=== PATIENT | female | born 1940 | race Caucasian/White ===

== ENCOUNTER 2017-08-08 10:11 | Inpatient (IN) | payer MEDICARE, SELFPAY ==
[~2017-08-08] VITALS: Ht 170.2 cm; Wt 99.8 kg
[~2017-08-08 10:11] MED LIST: ACET325 PO; ALBU8HFA2 INH; ALBU90OI INH; ALBU90OI61 INH; ALEN70 PO; ASACOL HD800 MG PO; AZACOL PO; Advair Hfa 230-12 GM INH; Antivert25 MG PO; BUDE6HFA INH; Bactrim Ds Tab1 EACH PO; CITA20 PO; D-MANNOSE PO; DICL25ER PO; DICL75ER PO; FLUSAL2505 IH; FURO20 PO; Flagyl500 MG PO; GUAI600ER PO; HYDACE5 PO; HYDMOR2 PO; HYOSYNE PO; LEVFLO250 PO; LORA1 PO; LORA10ER PO; METO50 PO; NYST100SU MT; OMEP20ER PO; PANT40 PO; POTCHL10ER PO; PROC5 PO; PROM25 PO; Percocet 5-3251 EACH PO; Protonix40 MG PO; SULTRIDS PO; TRAM50 PO; VICODIN 5-3001 EACH PO; Zofran Odt4 MG SL
[2017-08-08 11:49] LABS: BASOPHILS ABSOLUTE AUTO 0.01 K/mm3 (0.00-0.23); BASOPHILS PERCENT AUTO 0 % (0-2); EOSINOPHILS PERCENT AUTO 0 % (0-6); Hematocrit 39.8 % (33.0-51.0); Hemoglobin 13.4 g/dL (11.5-16.0); IMMATURE GRAN ABSOLUTE AUTO 0.05 K/mm3 (0.00-0.10); IMMATURE GRAN PERCENT AUTO 1 % (0-1); LYMPHOCYTES ABSOLUTE AUTO 0.85 K/mm3 (0.84-5.20); LYMPHOCYTES PERCENT AUTO 8 % (21-46); MONOCYTES PERCENT AUTO 10 % (4-13); Mean Corpuscular HGB 29.5 pg (26.0-34.0); Mean Corpuscular HGB Conc 33.7 g/dL (31.5-36.5); Mean Corpuscular Volume 88 fL (80-100); Mean Platelet Volume 9.5 fL (9.1-12.4); NEUTROPHILS ABSOLUTE AUTO 8.52 K/mm3 (1.96-9.15); NEUTROPHILS PERCENT AUTO 81 % (41-73); Platelet Count 193 K/mm3 (150-400); RDW Coefficient Variation 13.7 % (11.7-14.2); RDW Standard Deviation 44.4 fL (35.1-46.3); Red Blood Cell Count 4.54 M/mm3 (3.80-5.20); White Blood Cell Count 10.53 K/mm3 (4.00-11.30)
[2017-08-08 12:16] LABS: Alanine Aminotransfer (ALT/SGP 34 U/L (12-78); Albumin, Blood 2.8 g/dL (3.4-5.0); Albumin/Globulin Ratio 0.6 (0.8-1.8); Alk Phos 102 U/L (50-136); Anion Gap 11 mmol/L (6-16); Aspartate Aminotrans (AST/SGOT 41 U/L (12-37); Bilirubin, Total 0.6 mg/dL (0.1-1.0); Blood Urea Nitrogen 13 mg/dL (8-24); Bun/Creatinine Ratio 24.3 (12.0-20.0); CO2, Blood 26 mmol/L (21-32); Calcium, Blood 8.3 mg/dL (8.5-10.1); Chloride, Blood 87 mmol/L (98-108); Creatinine, Blood 0.54 mg/dL (0.40-1.00); Globulin, Blood 4.4 g/dL (2.2-4.0); Glomerular Filtration Rate >60 (60-); Glucose, Blood 195 mg/dL (70-99); Potassium, Blood 3.3 mmol/L (3.5-5.5); Sodium, Blood 124 mmol/L (136-145); Total Protein, Blood 7.2 g/dL (6.4-8.2)
[2017-08-08] MEDS ORDERED: Omeprazole20 M1 PO (13:12)
[2017-08-08] MEDS ORDERED: DONE10 PO (13:12)
[2017-08-08 14:04] LABS: Magnesium, Blood 1.9 mg/dL (1.6-2.4); Troponin I <0.015 ng/mL (0.000-0.040)
[2017-08-09 05:12] LABS: BASOPHILS PERCENT AUTO 0 % (0-2); EOSINOPHILS PERCENT AUTO 0 % (0-6); Hematocrit 34.3 % (33.0-51.0); Hemoglobin 11.5 g/dL (11.5-16.0); IMMATURE GRAN ABSOLUTE AUTO 0.04 K/mm3 (0.00-0.10); IMMATURE GRAN PERCENT AUTO 1 % (0-1); LYMPHOCYTES ABSOLUTE AUTO 0.52 K/mm3 (0.84-5.20); LYMPHOCYTES PERCENT AUTO 7 % (21-46); MONOCYTES ABSOLUTE AUTO 0.41 K/mm3 (0.16-1.47); MONOCYTES PERCENT AUTO 5 % (4-13); Mean Corpuscular HGB Conc 33.5 g/dL (31.5-36.5); Mean Corpuscular Volume 87 fL (80-100); Mean Platelet Volume 9.7 fL (9.1-12.4); NEUTROPHILS ABSOLUTE AUTO 6.91 K/mm3 (1.96-9.15); NEUTROPHILS PERCENT AUTO 88 % (41-73); Platelet Count 169 K/mm3 (150-400); RDW Coefficient Variation 13.7 % (11.7-14.2); RDW Standard Deviation 43.6 fL (35.1-46.3); Red Blood Cell Count 3.96 M/mm3 (3.80-5.20); White Blood Cell Count 7.88 K/mm3 (4.00-11.30)
[2017-08-09 05:44] LABS: Anion Gap 10 mmol/L (6-16); Blood Urea Nitrogen 14 mg/dL (8-24); Bun/Creatinine Ratio 26.7 (12.0-20.0); CO2, Blood 25 mmol/L (21-32); Chloride, Blood 92 mmol/L (98-108); Creatinine, Blood 0.52 mg/dL (0.40-1.00); Glomerular Filtration Rate >60 (60-); Glucose, Blood 209 mg/dL (70-99); Potassium, Blood 3.6 mmol/L (3.5-5.5); Sodium, Blood 127 mmol/L (136-145)
[2017-08-09 05:48] LABS: Troponin I <0.015 ng/mL (0.000-0.040)
[2017-08-09 05:49] LABS: Source, Urine Clean Catch
[2017-08-09 05:56] LABS: Bilirubin, Urine Neg (Neg); Blood, Urine 1+ (Neg); Glucose Qualitative, Urine 4+ (Neg); Ketones, Urine Neg (Neg); Leukocyte Esterase, Urine Neg (Neg); Nitrite, Urine Pos (Neg); Protein, Urine 1+ (Neg); Specific Gravity, Urine 1.015 (1.003-1.022); Urobilinogen, Urine NORM (Normal)
[2017-08-09 06:01] LABS: Appearance, Urine Hazy (Clear); Color, Urine Yellow (P-Yellow)
[2017-08-09 06:02] LABS: Bacteria Many /hpf; Red Blood Cells, Urine 0-2 /hpf (0-2); Squamous Epithelial Cells Few /hpf (Few)
[2017-08-09 10:49] LABS: Adenovirus Not Detected (NOT DETECT); Bordetella pertussis Not Detected (NOT DETECT); Chlamydophila pneumoniae Not Detected (NOT DETECT); Coronavirus 229E Not Detected (NOT DETECT); Coronavirus HKU1 Not Detected (NOT DETECT); Coronavirus NL63 Not Detected (NOT DETECT); Coronavirus OC43 Not Detected (NOT DETECT); Human Metapneumovirus Not Detected (NOT DETECT); Human Rhinovirus/Enterovirus Not Detected (NOT DETECT); Influenza A/2009-H1 Not Detected (NOT DETECT); Influenza A/H1 Not Detected (NOT DETECT); Influenza B Not Detected (NOT DETECT); Mycoplasma pneumoniae Not Detected (NOT DETECT); Parainfluenza Virus 1 Not Detected (NOT DETECT); Parainfluenza Virus 2 Not Detected (NOT DETECT); Parainfluenza Virus 3 Not Detected (NOT DETECT); Parainfluenza Virus 4 Not Detected (NOT DETECT); Respiratory Syncytial Virus Not Detected (NOT DETECT)
[2017-08-09 12:12] LABS: Influenza A/H3 Detected (NOT DETECT)
[2017-08-09 12:13] LABS: Influenza A Detected (NOT DETECT)
[2017-08-11 05:55] LABS: Anion Gap 9 mmol/L (6-16); Blood Urea Nitrogen 13 mg/dL (8-24); Bun/Creatinine Ratio 24.7 (12.0-20.0); CO2, Blood 28 mmol/L (21-32); Calcium, Blood 8.2 mg/dL (8.5-10.1); Chloride, Blood 98 mmol/L (98-108); Creatinine, Blood 0.53 mg/dL (0.40-1.00); Glomerular Filtration Rate >60 (60-); Glucose, Blood 116 mg/dL (70-99); Sodium, Blood 135 mmol/L (136-145)
[2017-08-11] MEDS ORDERED: Tylenol325 MG PO (10:45)
[2017-08-11] MEDS ORDERED: BUDE.25 NEB (10:46)
[2017-08-11] MEDS ORDERED: BENZ100A PO (10:46)
[2017-08-11] MEDS ORDERED: LEVO750 PO (10:47)
== END 2017-08-11 11:52 | disposition home or self-care (01) | DRG 193 ==
LOC: ER 10:11 → MEDS 15:15 → ENPENDDIS 08-11 10:04 → MEDS 08-11 11:52
PROVIDERS: Internal Medicine; Physician Assistant; Psychiatry & Neurology Psychiatry
DX: J11.08 Influenza due to unidentified influenza virus with specified pneumonia (principal); J96.01 Acute respiratory failure with hypoxia; J45.901 Unspecified asthma with (acute) exacerbation; E87.1 Hypo-osmolality and hyponatremia; E86.0 Dehydration; K21.9 Gastro-esophageal reflux disease without esophagitis; K27.9 Peptic ulcer, site unspecified, unspecified as acute or chronic, without hemorrhage or perforation; E87.6 Hypokalemia; R73.9 Hyperglycemia, unspecified; R73.03 Prediabetes; J14 Pneumonia due to Hemophilus influenzae; Z87.891 Personal history of nicotine dependence; Z79.899 Other long term (current) drug therapy; Z88.1 Allergy status to other antibiotic agents; Z88.5 Allergy status to narcotic agent; Z88.2 Allergy status to sulfonamides; Z88.8 Allergy status to other drugs, medicaments and biological substances; Z91.048 Other nonmedicinal substance allergy status
CPT/HCPCS: 36415; 71046; 80048; 80053; 81001; 82947; 83036; 83735; 83880; 84484; 85025; 87070; 87081; 87086; 87205; 87252; 87254; 87449; 87486; 87581; 87633; 87798; 93005; 93010; 94640; 94667; 94760; 96361; 96374; 96375; 97162; 97530; 99285; C9113; G8978; G8979; J0360; J0456; J0696; J1650; J2405; J2920; J3480; J7030; J7050; J7060; Q2038

== ENCOUNTER → 2018-08-29 | Outpatient (CLI) | payer MEDICARE ==
[~2018-08-29] MED LIST changes: +BENZ100A PO; +BUDE.25 NEB; +DONE10 PO; +LEVO750 PO; +Omeprazole20 M1 PO; +Tylenol325 MG PO
== END | disposition home or self-care (01) ==
LOC: LAB 13:55 → LAB SHORT 13:55
DX: N39.0 Urinary tract infection, site not specified (principal)
CPT/HCPCS: 87077; 87086; 87186

== ENCOUNTER → 2018-11-15 | Outpatient (CLI) | payer MEDICARE ==
[2018-11-15 16:17] LABS: BASOPHILS PERCENT AUTO 1 % (0-2); EOSINOPHILS ABSOLUTE AUTO 0.08 K/mm3 (0.00-0.68); EOSINOPHILS PERCENT AUTO 1 % (0-6); Hematocrit 36.4 % (33.0-51.0); IMMATURE GRAN ABSOLUTE AUTO 0.05 K/mm3 (0.00-0.10); IMMATURE GRAN PERCENT AUTO 1 % (0-1); LYMPHOCYTES ABSOLUTE AUTO 3.65 K/mm3 (0.84-5.20); LYMPHOCYTES PERCENT AUTO 35 % (21-46); MONOCYTES PERCENT AUTO 9 % (4-13); Mean Corpuscular HGB 28.6 pg (26.0-34.0); Mean Corpuscular Volume 87 fL (80-100); Mean Platelet Volume 10.1 fL (9.1-12.4); NEUTROPHILS ABSOLUTE AUTO 5.54 K/mm3 (1.96-9.15); NEUTROPHILS PERCENT AUTO 54 % (41-73); Platelet Count 176 K/mm3 (150-400); RDW Coefficient Variation 14.1 % (11.7-14.2); RDW Standard Deviation 45.1 fL (35.1-46.3); Red Blood Cell Count 4.19 M/mm3 (3.80-5.20); White Blood Cell Count 10.32 K/mm3 (4.00-11.30)
[2018-11-15 16:27] LABS: Albumin, Blood 3.4 g/dL (3.4-5.0); Albumin/Globulin Ratio 0.9 (0.8-1.8); Bilirubin, Total 0.4 mg/dL (0.1-1.0); Bun/Creatinine Ratio 17.8 (12.0-20.0); Calcium, Blood 8.4 mg/dL (8.5-10.1); Creatinine, Blood 1.18 mg/dL (0.40-1.00); Globulin, Blood 3.8 g/dL (2.2-4.0); Potassium, Blood 4.1 mmol/L (3.5-5.5); Total Protein, Blood 7.2 g/dL (6.4-8.2)
== END ==
LOC: LAB SHORT 16:12 → LAB EV 16:12
PROVIDERS: Emergency Medicine
DX: N39.0 Urinary tract infection, site not specified (principal)
CPT/HCPCS: 80053; 85025; 87086

== ENCOUNTER 2019-01-08 17:46 | Emergency (ER) | payer MEDICARE ==
[~2019-01-08] VITALS: Ht 170.2 cm; Wt 99.8 kg
[2019-01-08] MEDS ORDERED: CYCL10 PO (21:06)
[2019-01-08] MEDS ORDERED: Roxicodone5 MG PO (21:06)
== END 2019-01-08 22:13 | disposition home or self-care (01) ==
LOC: ER 17:46
DX: M54.5 Low back pain (principal); G89.29 Other chronic pain; M25.552 Pain in left hip; Z88.2 Allergy status to sulfonamides; Z88.8 Allergy status to other drugs, medicaments and biological substances; Z88.1 Allergy status to other antibiotic agents; Z88.0 Allergy status to penicillin; Z79.899 Other long term (current) drug therapy; J45.909 Unspecified asthma, uncomplicated; Z87.891 Personal history of nicotine dependence
CPT/HCPCS: 96372; 99283-25; A9270; A9270-GY; J1170

== ENCOUNTER → 2019-02-03 | Outpatient (CLI) | payer MEDICARE ==
[~2019-02-03] MED LIST changes: +ASCO500 PO; +AZIT250 PO; +AZO CRANBERRY1 EAC1 PO; +CEFP200 PO; +CYCL10 PO; +FERSU300 PO; +GUAI600T33 PO; +PRED20 PO; +Pulmicort1 MG/2 ML INH; +Roxicodone5 MG PO; +SENN187 PO
== END ==
LOC: LAB SHORT 16:12 → LAB EV 16:12
DX: R30.0 Dysuria (principal)
CPT/HCPCS: 87077; 87086; 87186

== ENCOUNTER → 2019-02-27 | Outpatient (CLI) | payer MEDICARE | END | disposition home or self-care (01) | LOC: LAB 15:00 → LAB SHORT 15:00 | DX: N39.0 Urinary tract infection, site not specified (principal) | CPT/HCPCS: 87077; 87086; 87186 ==

== ENCOUNTER → 2019-03-29 | Outpatient (CLI) | payer MEDICARE | LOC: LAB SHORT 13:39 → LAB 13:39 | DX: N39.0 Urinary tract infection, site not specified (principal) | CPT/HCPCS: 87077; 87086; 87186 ==

== ENCOUNTER → 2019-05-16 | Outpatient (CLI) | payer MEDICARE | END | disposition home or self-care (01) | LOC: LAB SHORT 14:12 → LAB 14:12 | DX: N39.0 Urinary tract infection, site not specified (principal) | CPT/HCPCS: 87077; 87086; 87186 ==

== ENCOUNTER → 2019-05-19 | Outpatient (CLI) | payer MEDICARE ==
[2019-05-19 16:44] LABS: BASOPHILS ABSOLUTE AUTO 0.11 K/mm3 (0.00-0.23); BASOPHILS PERCENT AUTO 1 % (0-2); EOSINOPHILS ABSOLUTE AUTO 0.13 K/mm3 (0.00-0.68); EOSINOPHILS PERCENT AUTO 1 % (0-6); Hematocrit 38.2 % (33.0-51.0); Hemoglobin 12.8 g/dL (11.5-16.0); IMMATURE GRAN ABSOLUTE AUTO 0.11 K/mm3 (0.00-0.10); IMMATURE GRAN PERCENT AUTO 1 % (0-1); LYMPHOCYTES ABSOLUTE AUTO 2.26 K/mm3 (0.84-5.20); LYMPHOCYTES PERCENT AUTO 19 % (21-46); MONOCYTES ABSOLUTE AUTO 1.16 K/mm3 (0.16-1.47); MONOCYTES PERCENT AUTO 10 % (4-13); Mean Corpuscular HGB Conc 33.5 g/dL (31.5-36.5); Mean Corpuscular Volume 87 fL (80-100); Mean Platelet Volume 9.6 fL (9.1-12.4); NEUTROPHILS ABSOLUTE AUTO 8.42 K/mm3 (1.96-9.15); NEUTROPHILS PERCENT AUTO 69 % (41-73); Platelet Count 232 K/mm3 (150-400); RDW Coefficient Variation 13.3 % (11.7-14.2); RDW Standard Deviation 42.2 fL (35.1-46.3); Red Blood Cell Count 4.41 M/mm3 (3.80-5.20); White Blood Cell Count 12.19 K/mm3 (4.00-11.30)
[2019-05-19 16:52] LABS: Albumin, Blood 2.8 g/dL (3.4-5.0); Albumin/Globulin Ratio 0.6 (0.8-1.8); Bilirubin, Total 0.6 mg/dL (0.1-1.0); Bun/Creatinine Ratio 8.9 (12.0-20.0); Calcium, Blood 8.9 mg/dL (8.5-10.1); Creatinine, Blood 1.12 mg/dL (0.40-1.00); Total Protein, Blood 7.8 g/dL (6.4-8.2)
== END | disposition home or self-care (01) ==
LOC: LAB EV 16:38 → LAB SHORT 16:38
PROVIDERS: Physician Assistant
DX: N39.0 Urinary tract infection, site not specified (principal); R11.2 Nausea with vomiting, unspecified
CPT/HCPCS: 80053; 85025; 87077; 87086; 87186

== ENCOUNTER 2019-05-20 16:31 | Inpatient (IN) | payer MEDICARE ==
[~2019-05-20] VITALS: Ht 170.2 cm; Wt 95.2 kg
[~2019-05-20 16:31] MED LIST changes: -ASCO500 PO; -AZIT250 PO; -AZO CRANBERRY1 EAC1 PO; -CEFP200 PO; -FERSU300 PO; -GUAI600T33 PO; -PRED20 PO; -Pulmicort1 MG/2 ML INH; -SENN187 PO
--- NOTE | 2019-05-20 19:01 | NUR ---
PT TRANSFERRED FROM ER. SETTLED TO BED. HUSB GOING TO GET SOME DINNER. STATES HE BETTER HISTORIAN. PASSING TO [facility]. BED IN LOW POSITION,C ALL LITE IN REACH. CALLS APPROP
[2019-05-21 04:39] LABS: BASOPHILS ABSOLUTE AUTO 0.02 K/mm3 (0.00-0.23); BASOPHILS PERCENT AUTO 0 % (0-2); EOSINOPHILS ABSOLUTE AUTO 0.01 K/mm3 (0.00-0.68); EOSINOPHILS PERCENT AUTO 0 % (0-6); Hematocrit 31.8 % (33.0-51.0); Hemoglobin 10.3 g/dL (11.5-16.0); IMMATURE GRAN ABSOLUTE AUTO 0.08 K/mm3 (0.00-0.10); IMMATURE GRAN PERCENT AUTO 1 % (0-1); LYMPHOCYTES ABSOLUTE AUTO 0.78 K/mm3 (0.84-5.20); LYMPHOCYTES PERCENT AUTO 13 % (21-46); MONOCYTES ABSOLUTE AUTO 0.14 K/mm3 (0.16-1.47); MONOCYTES PERCENT AUTO 2 % (4-13); Mean Corpuscular HGB 29.2 pg (26.0-34.0); Mean Corpuscular HGB Conc 32.4 g/dL (31.5-36.5); Mean Platelet Volume 9.5 fL (9.1-12.4); NEUTROPHILS ABSOLUTE AUTO 5.02 K/mm3 (1.96-9.15); NEUTROPHILS PERCENT AUTO 83 % (41-73); Platelet Count 168 K/mm3 (150-400); RDW Coefficient Variation 13.5 % (11.7-14.2); Red Blood Cell Count 3.53 M/mm3 (3.80-5.20); White Blood Cell Count 6.05 K/mm3 (4.00-11.30)
[2019-05-21 04:40] LABS: Mean Corpuscular Volume 90 fL (80-100)
[2019-05-21 04:54] LABS: Anion Gap 6 mmol/L (6-16); Blood Urea Nitrogen 7 mg/dL (8-24); Bun/Creatinine Ratio 11.6 (12.0-20.0); CO2, Blood 26 mmol/L (21-32); Calcium, Blood 7.7 mg/dL (8.5-10.1); Chloride, Blood 104 mmol/L (98-108); Creatinine, Blood 0.61 mg/dL (0.40-1.00); Glomerular Filtration Rate >60 (60-); Glucose, Blood 220 mg/dL (70-99); Sodium, Blood 136 mmol/L (136-145)
--- NOTE | 2019-05-21 05:26 | NUR ---
PATIENT RESTED WELL AND RECEIVED 3L OF IVF THIS NOC SHIFT. SHE TOLERATED THIS WELL AND SAYS SHE IS FEELING MUCH BETTER THIS MORNING. NO ACUTE CHANGES TO REPORT. BED LOW AND LOCKED AND ALARMED FOR SAFETY. CALL VANESSA WITHIN REACH.
--- NOTE | 2019-05-21 16:48 | NUR ---
PT IS SAYING THAT SHE IS FEELING BETTER THAN SHE HAS IN WEEKS, SHE IS STEADY ON HER FEET, SOB HAS SUBSIDED. IV ZITHROMAX CHANGED TO PO. PT IS HOPING TO BE ABLE TO GO HOME TOMORROW. NO ACUTE CHANGES NOTED THIS SHIFT, WILL CONTINUE TO MONITOR AND REPORT TO ONCOMING RN
[2019-05-22 05:10] LABS: BASOPHILS ABSOLUTE AUTO 0.03 K/mm3 (0.00-0.23); BASOPHILS PERCENT AUTO 0 % (0-2); EOSINOPHILS ABSOLUTE AUTO 0.01 K/mm3 (0.00-0.68); EOSINOPHILS PERCENT AUTO 0 % (0-6); Hematocrit 31.1 % (33.0-51.0); IMMATURE GRAN ABSOLUTE AUTO 0.17 K/mm3 (0.00-0.10); IMMATURE GRAN PERCENT AUTO 2 % (0-1); LYMPHOCYTES ABSOLUTE AUTO 2.02 K/mm3 (0.84-5.20); LYMPHOCYTES PERCENT AUTO 21 % (21-46); MONOCYTES ABSOLUTE AUTO 0.78 K/mm3 (0.16-1.47); MONOCYTES PERCENT AUTO 8 % (4-13); Mean Corpuscular HGB 28.3 pg (26.0-34.0); Mean Corpuscular HGB Conc 32.2 g/dL (31.5-36.5); Mean Corpuscular Volume 88 fL (80-100); Mean Platelet Volume 9.2 fL (9.1-12.4); NEUTROPHILS ABSOLUTE AUTO 6.41 K/mm3 (1.96-9.15); NEUTROPHILS PERCENT AUTO 68 % (41-73); Platelet Count 192 K/mm3 (150-400); RDW Coefficient Variation 13.3 % (11.7-14.2); RDW Standard Deviation 43.1 fL (35.1-46.3); Red Blood Cell Count 3.53 M/mm3 (3.80-5.20); White Blood Cell Count 9.42 K/mm3 (4.00-11.30)
[2019-05-22 05:32] LABS: Anion Gap 8 mmol/L (6-16); Blood Urea Nitrogen 9 mg/dL (8-24); Bun/Creatinine Ratio 15.8 (12.0-20.0); CO2, Blood 27 mmol/L (21-32); Calcium, Blood 8.7 mg/dL (8.5-10.1); Chloride, Blood 102 mmol/L (98-108); Creatinine, Blood 0.57 mg/dL (0.40-1.00); Glomerular Filtration Rate >60 (60-); Glucose, Blood 157 mg/dL (70-99); Potassium, Blood 3.7 mmol/L (3.5-5.5); Sodium, Blood 137 mmol/L (136-145)
--- NOTE | 2019-05-22 07:41 | NUR ---
patient had a headache and had troudble sleeping this shift. she received tylenol and chammomile tea an a warm compress which improved her level of pain.
[2019-05-22] MEDS ORDERED: AZIT250 PO (10:22)
[2019-05-22] MEDS ORDERED: Pulmicort1 MG/2 ML INH (10:22)
[2019-05-22] MEDS ORDERED: CEFP200 PO (10:23)
[2019-05-22] MEDS ORDERED: AZO CRANBERRY1 EAC1 PO (10:24)
[2019-05-22] MEDS ORDERED: PRED20 PO (10:25)
[2019-05-22] MEDS ORDERED: SENN187 PO (10:25)
[2019-05-22] MEDS ORDERED: GUAI600T33 PO (10:25)
[2019-05-22] MEDS ORDERED: ASCO500 PO (10:26)
[2019-05-22] MEDS ORDERED: FERSU300 PO (10:26)
--- NOTE | 2019-05-22 11:32 | NUR ---
PERMISSION FOR CARE PATIENT GAVE STUDENT PERMISSION TO PROVIDE CARE ON 05/22/19.
--- NOTE | 2019-05-22 14:37 | NUR ---
SHIFT SUMMARY. 1308 PT DISCHARGED HOME VIA PERSONAL VEHICLE ACCOMPANIED AND DRIVEN BY . PT ESCORTED TO ENTRANCE VIA W/C BY AVIONICS TEST TECHNICIAN. IV REMOVED BY SN. D/C INSTRUCTIONS REVIEWED WITH PT AND COPY PROVIDED. NEW RX SENT TO [facility] PER PT REQUEST. NO NEW CHANGES OR CONCERNS.
== END 2019-05-22 13:08 | disposition home or self-care (01) | DRG 193 ==
LOC: ER 16:31 → MEDS 17:17 → ENPENDDIS 05-22 10:37 → MEDS 05-22 13:08
PROVIDERS: Family Medicine; ADMIT Hospitalist
DX: J18.1 Lobar pneumonia, unspecified organism (principal); J96.21 Acute and chronic respiratory failure with hypoxia; E87.1 Hypo-osmolality and hyponatremia; N39.0 Urinary tract infection, site not specified; J44.0 Chronic obstructive pulmonary disease with (acute) lower respiratory infection; J44.1 Chronic obstructive pulmonary disease with (acute) exacerbation; J45.901 Unspecified asthma with (acute) exacerbation; Z66 Do not resuscitate; K21.9 Gastro-esophageal reflux disease without esophagitis; B96.20 Unspecified Escherichia coli [E. coli] as the cause of diseases classified elsewhere; Z88.1 Allergy status to other antibiotic agents; Z88.5 Allergy status to narcotic agent; Z88.2 Allergy status to sulfonamides; Z87.891 Personal history of nicotine dependence
CPT/HCPCS: 36415; 80048; 83605; 85025; 87040; 87449; 94640; 94760; 96360; 99285-25; A9270; J0456; J0696; J1650; J7030; J7050; J7512

== ENCOUNTER → 2019-05-20 | Outpatient (CLI) | payer MEDICARE ==
[2019-05-20 15:48] LABS: BASOPHILS ABSOLUTE AUTO 0.09 K/mm3 (0.00-0.23); BASOPHILS PERCENT AUTO 1 % (0-2); EOSINOPHILS ABSOLUTE AUTO 0.09 K/mm3 (0.00-0.68); EOSINOPHILS PERCENT AUTO 1 % (0-6); Hematocrit 37.5 % (33.0-51.0); Hemoglobin 12.3 g/dL (11.5-16.0); IMMATURE GRAN PERCENT AUTO 1 % (0-1); LYMPHOCYTES ABSOLUTE AUTO 2.44 K/mm3 (0.84-5.20); LYMPHOCYTES PERCENT AUTO 22 % (21-46); MONOCYTES ABSOLUTE AUTO 1.01 K/mm3 (0.16-1.47); MONOCYTES PERCENT AUTO 9 % (4-13); Mean Corpuscular HGB 28.7 pg (26.0-34.0); Mean Corpuscular HGB Conc 32.8 g/dL (31.5-36.5); Mean Corpuscular Volume 87 fL (80-100); Mean Platelet Volume 9.7 fL (9.1-12.4); NEUTROPHILS ABSOLUTE AUTO 7.27 K/mm3 (1.96-9.15); NEUTROPHILS PERCENT AUTO 66 % (41-73); Platelet Count 207 K/mm3 (150-400); RDW Coefficient Variation 13.5 % (11.7-14.2); RDW Standard Deviation 42.8 fL (35.1-46.3); Red Blood Cell Count 4.29 M/mm3 (3.80-5.20)
[2019-05-20 15:56] LABS: Albumin, Blood 2.6 g/dL (3.4-5.0); Albumin/Globulin Ratio 0.6 (0.8-1.8); Bilirubin, Total 0.5 mg/dL (0.1-1.0); Bun/Creatinine Ratio 10.5 (12.0-20.0); Calcium, Blood 8.8 mg/dL (8.5-10.1); Creatinine, Blood 0.95 mg/dL (0.40-1.00); Globulin, Blood 4.7 g/dL (2.2-4.0); Potassium, Blood 3.7 mmol/L (3.5-5.5); Total Protein, Blood 7.3 g/dL (6.4-8.2)
== END | disposition home or self-care (01) ==
LOC: LAB SHORT 15:42 → LAB EV 15:42
PROVIDERS: Physician Assistant
DX: R06.00 Dyspnea, unspecified (principal)
CPT/HCPCS: 80053; 83880; 85025

== ENCOUNTER → 2019-08-15 | Outpatient (CLI) | payer MEDICARE ==
[~2019-08-15] MED LIST changes: +ASCO500 PO; +AZIT250 PO; +AZO CRANBERRY1 EAC1 PO; +CEFP200 PO; +FERSU300 PO; +GUAI600T33 PO; +PRED20 PO; +Pulmicort1 MG/2 ML INH; +SENN187 PO
== END | disposition home or self-care (01) ==
LOC: LAB EV 11:30 → LAB SHORT 11:30
DX: N39.0 Urinary tract infection, site not specified (principal)
CPT/HCPCS: 87086

== ENCOUNTER → 2019-10-12 | Outpatient (CLI) | payer MEDICARE ==
[2019-10-12 11:02] LABS: BASOPHILS ABSOLUTE AUTO 0.11 K/mm3 (0.00-0.23); BASOPHILS PERCENT AUTO 1 % (0-2); EOSINOPHILS ABSOLUTE AUTO 0.09 K/mm3 (0.00-0.68); EOSINOPHILS PERCENT AUTO 1 % (0-6); Hematocrit 41.8 % (33.0-51.0); Hemoglobin 14.3 g/dL (11.5-16.0); IMMATURE GRAN ABSOLUTE AUTO 0.14 K/mm3 (0.00-0.10); IMMATURE GRAN PERCENT AUTO 1 % (0-1); LYMPHOCYTES ABSOLUTE AUTO 4.96 K/mm3 (0.84-5.20); LYMPHOCYTES PERCENT AUTO 38 % (21-46); MONOCYTES ABSOLUTE AUTO 0.91 K/mm3 (0.16-1.47); MONOCYTES PERCENT AUTO 7 % (4-13); Mean Corpuscular HGB Conc 34.2 g/dL (31.5-36.5); Mean Corpuscular Volume 85 fL (80-100); Mean Platelet Volume 10.5 fL (9.1-12.4); NEUTROPHILS PERCENT AUTO 53 % (41-73); Platelet Count 262 K/mm3 (150-400); RDW Coefficient Variation 14.6 % (11.7-14.2); RDW Standard Deviation 44.8 fL (35.1-46.3); Red Blood Cell Count 4.93 M/mm3 (3.80-5.20); White Blood Cell Count 13.11 K/mm3 (4.00-11.30)
[2019-10-12 11:07] LABS: Anion Gap 9 mmol/L (6-16); Blood Urea Nitrogen 17 mg/dL (8-24); Bun/Creatinine Ratio 18.9 (12.0-20.0); CO2, Blood 26 mmol/L (21-32); Chloride, Blood 98 mmol/L (98-108); Glomerular Filtration Rate >60 (60-); Glucose, Blood 150 mg/dL (70-99); Potassium, Blood 4.4 mmol/L (3.5-5.5); Sodium, Blood 133 mmol/L (136-145)
== END | disposition home or self-care (01) ==
LOC: LAB SHORT 10:55 → LAB EV 10:55
PROVIDERS: Family Medicine
DX: R06.00 Dyspnea, unspecified (principal)
CPT/HCPCS: 80048; 83880; 85025

== ENCOUNTER → 2019-12-26 | Outpatient (CLI) | payer MEDICARE ==
[~2019-12-26] MED LIST changes: +ALBU2.5V5 NEB; +Aspir 8181 MG PO; +DICLOFENAC SOD100 G1 TOP; +MIRALAX17 GM PO; +Ventolin/Prove6.7 GM INH; +Vitamin D2000 UNIT PO
[2019-12-26 12:47] LABS: BASOPHILS ABSOLUTE AUTO 0.09 K/mm3 (0.00-0.23); BASOPHILS PERCENT AUTO 1 % (0-2); EOSINOPHILS ABSOLUTE AUTO 0.11 K/mm3 (0.00-0.68); EOSINOPHILS PERCENT AUTO 1 % (0-6); Hematocrit 43.1 % (33.0-51.0); Hemoglobin 14.1 g/dL (11.5-16.0); IMMATURE GRAN ABSOLUTE AUTO 0.05 K/mm3 (0.00-0.10); IMMATURE GRAN PERCENT AUTO 0 % (0-1); LYMPHOCYTES ABSOLUTE AUTO 4.66 K/mm3 (0.84-5.20); LYMPHOCYTES PERCENT AUTO 38 % (21-46); MONOCYTES ABSOLUTE AUTO 0.79 K/mm3 (0.16-1.47); MONOCYTES PERCENT AUTO 7 % (4-13); Mean Corpuscular HGB 29.4 pg (26.0-34.0); Mean Corpuscular HGB Conc 32.7 g/dL (31.5-36.5); Mean Corpuscular Volume 90 fL (80-100); Mean Platelet Volume 10.4 fL (9.1-12.4); NEUTROPHILS ABSOLUTE AUTO 6.43 K/mm3 (1.96-9.15); NEUTROPHILS PERCENT AUTO 53 % (41-73); Platelet Count 222 K/mm3 (150-400); RDW Coefficient Variation 14.4 % (11.7-14.2); RDW Standard Deviation 47.7 fL (35.1-46.3); Red Blood Cell Count 4.79 M/mm3 (3.80-5.20); White Blood Cell Count 12.13 K/mm3 (4.00-11.30)
[2019-12-26 13:00] LABS: Albumin, Blood 3.9 g/dL (3.4-5.0); Bilirubin, Total 0.7 mg/dL (0.1-1.0); Bun/Creatinine Ratio 23.4 (12.0-20.0); Creatinine, Blood 1.24 mg/dL (0.40-1.00); Globulin, Blood 3.9 g/dL (2.2-4.0); Potassium, Blood 4.2 mmol/L (3.5-5.5); Total Protein, Blood 7.8 g/dL (6.4-8.2)
== END | disposition home or self-care (01) ==
LOC: LAB EV 12:43 → LAB SHORT 12:43
PROVIDERS: Physician Assistant
DX: K20.9 Esophagitis, unspecified (principal); R11.2 Nausea with vomiting, unspecified
CPT/HCPCS: 80053; 83690; 84484; 85025

== ENCOUNTER 2019-12-27 15:13 | Inpatient (IN) | payer MEDICARE ==
[~2019-12-27] VITALS: Ht 170.2 cm; Wt 98.5 kg
[~2019-12-27 15:13] MED LIST changes: -ALBU2.5V5 NEB; -ASCO500 PO; -Aspir 8181 MG PO; -DICLOFENAC SOD100 G1 TOP; -MIRALAX17 GM PO; -Ventolin/Prove6.7 GM INH; -Vitamin D2000 UNIT PO
[2019-12-27] MEDS ORDERED: MIRALAX17 GM PO (15:35)
[2019-12-27] MEDS ORDERED: DICL75ER PO (15:36)
[2019-12-27 16:15] LABS: BASOPHILS ABSOLUTE AUTO 0.14 K/mm3 (0.00-0.23); BASOPHILS PERCENT AUTO 1 % (0-2); EOSINOPHILS PERCENT AUTO 1 % (0-6); Hematocrit 41.5 % (33.0-51.0); Hemoglobin 12.9 g/dL (11.5-16.0); IMMATURE GRAN ABSOLUTE AUTO 0.05 K/mm3 (0.00-0.10); IMMATURE GRAN PERCENT AUTO 0 % (0-1); LYMPHOCYTES ABSOLUTE AUTO 5.06 K/mm3 (0.84-5.20); LYMPHOCYTES PERCENT AUTO 40 % (21-46); MONOCYTES ABSOLUTE AUTO 0.93 K/mm3 (0.16-1.47); MONOCYTES PERCENT AUTO 7 % (4-13); Mean Corpuscular HGB 28.9 pg (26.0-34.0); Mean Corpuscular HGB Conc 31.1 g/dL (31.5-36.5); NEUTROPHILS ABSOLUTE AUTO 6.25 K/mm3 (1.96-9.15); NEUTROPHILS PERCENT AUTO 50 % (41-73); Platelet Count 201 K/mm3 (150-400); RDW Coefficient Variation 14.4 % (11.7-14.2); RDW Standard Deviation 49.1 fL (35.1-46.3); Red Blood Cell Count 4.47 M/mm3 (3.80-5.20); White Blood Cell Count 12.53 K/mm3 (4.00-11.30)
[2019-12-27 16:18] LABS: Mean Corpuscular Volume 93 fL (80-100)
[2019-12-27 16:23] LABS: Source, Urine Clean Catch
[2019-12-27 16:29] LABS: Bilirubin, Urine Neg (Neg); Blood, Urine Neg (Neg); Glucose Qualitative, Urine 1+ (Neg); Ketones, Urine Neg (Neg); Leukocyte Esterase, Urine Neg (Neg); Nitrite, Urine Neg (Neg); Protein, Urine Neg (Neg); Urobilinogen, Urine NORM (Normal)
[2019-12-27 16:31] LABS: Appearance, Urine Clear (Clear); Color, Urine Yellow (P-Yellow)
[2019-12-27 16:39] LABS: Albumin, Blood 3.5 g/dL (3.4-5.0); Albumin/Globulin Ratio 0.9 (0.8-1.8); Bilirubin, Total 0.5 mg/dL (0.1-1.0); Bun/Creatinine Ratio 24.3 (12.0-20.0); Calcium, Blood 8.5 mg/dL (8.5-10.1); Creatinine, Blood 0.99 mg/dL (0.40-1.00); Globulin, Blood 3.7 g/dL (2.2-4.0); Potassium, Blood 4.2 mmol/L (3.5-5.5); Total Protein, Blood 7.2 g/dL (6.4-8.2)
[2019-12-27] MEDS ORDERED: DICLOFENAC SOD100 G1 TOP (20:07)
[2019-12-27] MEDS ORDERED: ALBU2.5V5 NEB (20:08)
[2019-12-27] MEDS ORDERED: Ventolin/Prove6.7 GM INH (20:10)
[2019-12-27] MEDS ORDERED: Aspir 8181 MG PO (20:29)
[2019-12-27] MEDS ORDERED: ASCO500 PO (20:29)
[2019-12-27] MEDS ORDERED: Vitamin D2000 UNIT PO (20:30)
--- NOTE | 2019-12-28 04:45 | NUR ---
SHIFT SUMMARY ASSUMED CARE OF PT AT 2140. PT IS A/OX4, STATES NUMBESS IN HER BIG TOES. HEART SOUNDS REGULAR, PT HAS A PACEMAKER IN HER L CHEST, DENIES CP. LUNG SOUNDS HAVE FINE CRACKLES IN RLQ, DENIES SOB AT THIS TIME. PT WAS NEUSEASED AROUND 0200 THIS AM, PT AWOKE AND HAD TO PEE AND FELT DIZZY. WHEN SHE GOT UP SHE FELT SICK AND WAS DRY HEAVING, AFTER MEDICATED PT FELT BETTER. PT MEDICATED WITH DILUDID BEFORE THIS, PT STATED THAT SHE NEVER HAD A REACTION TO THIS MEDICATION BEFORE AND SHE IS NOT SURE WHY SHE FELT DIZZY, VITALS WERE STABLE. PT WALKS WITH A CANE, PT CAN WALK TO BATHROOM BUT STATES SHE HAS A BAD L HIP AND SHE CANT WALK VERY WELL ANYMORE. PT LIVES WITH IN MOBILE HOME. PT WAS NOT ABLE TO SLEEP MUCH DURING THE NIGHT. CALL LIGHT IN REACH, BED IN LWOEST POSTION, WILL CONTINUE TO MONIOTR UNTIL DAYSHIFT NURSE ARRIVES.
[2019-12-28 05:02] LABS: BASOPHILS ABSOLUTE AUTO 0.09 K/mm3 (0.00-0.23); BASOPHILS PERCENT AUTO 1 % (0-2); EOSINOPHILS ABSOLUTE AUTO 0.07 K/mm3 (0.00-0.68); EOSINOPHILS PERCENT AUTO 1 % (0-6); Hematocrit 36.7 % (33.0-51.0); Hemoglobin 11.4 g/dL (11.5-16.0); IMMATURE GRAN ABSOLUTE AUTO 0.03 K/mm3 (0.00-0.10); IMMATURE GRAN PERCENT AUTO 0 % (0-1); LYMPHOCYTES ABSOLUTE AUTO 3.34 K/mm3 (0.84-5.20); LYMPHOCYTES PERCENT AUTO 38 % (21-46); MONOCYTES ABSOLUTE AUTO 0.66 K/mm3 (0.16-1.47); MONOCYTES PERCENT AUTO 7 % (4-13); Mean Corpuscular HGB 29.1 pg (26.0-34.0); Mean Corpuscular HGB Conc 31.1 g/dL (31.5-36.5); Mean Corpuscular Volume 94 fL (80-100); Mean Platelet Volume 10.2 fL (9.1-12.4); NEUTROPHILS ABSOLUTE AUTO 4.72 K/mm3 (1.96-9.15); NEUTROPHILS PERCENT AUTO 53 % (41-73); Platelet Count 159 K/mm3 (150-400); RDW Coefficient Variation 14.6 % (11.7-14.2); RDW Standard Deviation 50.4 fL (35.1-46.3); Red Blood Cell Count 3.92 M/mm3 (3.80-5.20); White Blood Cell Count 8.91 K/mm3 (4.00-11.30)
[2019-12-28 05:27] LABS: Alanine Aminotransfer (ALT/SGP 89 U/L (12-78); Albumin, Blood 2.9 g/dL (3.4-5.0); Alk Phos 169 U/L (50-136); Anion Gap 7 mmol/L (6-16); Aspartate Aminotrans (AST/SGOT 55 U/L (12-37); Bilirubin, Total 0.6 mg/dL (0.1-1.0); Blood Urea Nitrogen 15 mg/dL (8-24); Bun/Creatinine Ratio 22.2 (12.0-20.0); CO2, Blood 23 mmol/L (21-32); Calcium, Blood 7.8 mg/dL (8.5-10.1); Chloride, Blood 110 mmol/L (98-108); Creatinine, Blood 0.68 mg/dL (0.40-1.00); Glomerular Filtration Rate >60 (60-); Glucose, Blood 132 mg/dL (70-99); Magnesium, Blood 2.3 mg/dL (1.6-2.4); Potassium, Blood 4.3 mmol/L (3.5-5.5); Sodium, Blood 140 mmol/L (136-145); Total Protein, Blood 5.9 g/dL (6.4-8.2)
--- NOTE | 2019-12-28 10:35 | NUR ---
Pt resting in bed upon arrival. Pt is A&OX4 and reports mild but manageable discomfort due to gas pains. Pt denies dyspnea at this time. Pt reports mild anxiety due to anticipation of procedure that is scheduled today. Pt becomes more anxious through out visist due to room being to warm. Thermostat is set in lowest position. Engaged in therapeutic discussion regarding Advanced Care Planning and POLST. Pt reports living at home with her . Pt reports using a walker and cane for ambulation and requires her 's assistance with getting into shower. She states having difficulty lifting her leg over the tub to shower. Pt reports her is becoming more frail as well. Discussed the importance of planning for the future and the possibility of needing caregivers in the home. Pt reports her and her are on a limited income and can not afford to higher a caregiver. Suggested applying for Medicaid through [employer]. Discussed current POLST on file. Current POLST on file is DNR and Limited Treatment. 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 Suggested completing new POLST with education on life sustaining measures including risk factors but Pt is distracted due to the room being to warm. Opened Pt's door to assist with cooling off room. Ended visit due to Pt's anxiety. Will attempt to F/U regarding POLST after Pt's procedure. Palliative Care will remain available.
--- NOTE | 2019-12-28 15:48 | NUR ---
PT INTO [facility] VIA [facility]. History, Chart, Medications and Allergies reviewed before start of procedure.Patient confirms NPO status and agrees with scheduled surgery.
--- NOTE | 2019-12-28 16:05 | NUR ---
12/28/19 1605 LUCIA MONAE History, Chart, Medications and Allergies reviewed before start of procedure. 3-LEAD EKG REVIEWED WITH PHYSICIAN PRIOR TO START OF PROCEDURE. O2 VIA N/C INTACT THROUGHOUT SEDATION/PROCEDURE. MONITOR INTACT WITH CONTINUOUS PULSE OXIMETRY AND INTERMITTENT BP. PATIENT DETERMINED TO BE ASA APPROPRIATE FOR PROPOFOL SEDATION PRIOR TO START OF PROCEDURE BY DR. STARR.
--- NOTE | 2019-12-28 18:20 | NUR ---
SHIFT SUMMARY PT HAVING DRY HEAVES ON AND OFF TODAY ESPECIALLY WHEN SHE SITS UP IN BED OR JUST LAYS DOWN. EPISODES PASS AND PT REPORTS THESE EPISODES ARE BETTER THAN SHE HAS BEEN EXPERIENCING IN THE LAST FEW DAYS. 1 PERSON ASSIST WITH TRANSFER TO [facility] DUE TO PAINFUL L HIP. VOIDING FREQUENTLY. MECLIZINE GIVEN JUST PRIOR TO GOING FOR CT SCAN. WAS ABLE TO SIT UP ON SIDE OF BED AND EAT SOME OF HER FOOD. REPORTS SHE DOESN'T LIKE MOST OF IT BUT WILL BE DRINKING LOTS OF FLUIDS. STATED SHE WAS BEGINNING TO FEEL BETTER.
--- NOTE | 2019-12-29 03:14 | NUR ---
Patient got very dizzy and nauseated after ambulating to bathroom. Zofran given with good result. She stated that she has had these spells quite frequently over the years. Not necessarily in the bathroom.
[2019-12-29 05:40] LABS: Alanine Aminotransfer (ALT/SGP 65 U/L (12-78); Albumin/Globulin Ratio 0.9 (0.8-1.8); Alk Phos 164 U/L (50-136); Anion Gap 9 mmol/L (6-16); Aspartate Aminotrans (AST/SGOT 28 U/L (12-37); Bilirubin, Total 0.9 mg/dL (0.1-1.0); Blood Urea Nitrogen 9 mg/dL (8-24); Bun/Creatinine Ratio 13.9 (12.0-20.0); CO2, Blood 24 mmol/L (21-32); Calcium, Blood 8.5 mg/dL (8.5-10.1); Chloride, Blood 106 mmol/L (98-108); Creatinine, Blood 0.65 mg/dL (0.40-1.00); Globulin, Blood 3.2 g/dL (2.2-4.0); Glomerular Filtration Rate >60 (60-); Glucose, Blood 124 mg/dL (70-99); Potassium, Blood 4.1 mmol/L (3.5-5.5); Sodium, Blood 139 mmol/L (136-145); Total Protein, Blood 6.2 g/dL (6.4-8.2)
--- NOTE | 2019-12-29 06:38 | NUR ---
MILKING MACHINE OPERATOR SUMMARY Episode of extreme dizziness and dry heaves within minutes of sitting down on toilet in bathroom. Patient said this unfortunately not a rare situation for Mariajose. Only once just after this episode did she have any complaint of upper abd pain 8/10, which was resolved with IV Dilaudid after approximately 10 minutes. Discussed her conversation with Dr. Yang after her EGD, and how she will be seeing an MD in [place] who can do the diagnostic testing she needs.
[2019-12-29] MEDS ORDERED: MECL25 PO (14:31)
--- NOTE | 2019-12-29 15:16 | NUR ---
patient was given discharge instructions and iv removed. patient is awaiting her husbands arrival so she can leave the hospital.
== END 2019-12-29 15:25 | disposition home or self-care (01) | DRG 392 ==
LOC: ER 15:13 → MEDS 21:29
PROVIDERS: Internal Medicine; Internal Medicine Gastroenterology; Nurse Practitioner Acute Care; Physician Assistant; ADMIT Internal Medicine
PROC: 0DD68ZX Extraction of Stomach, Via Natural or Artificial Opening Endoscopic, Diagnostic (ICD-10-PCS; 2019-12-28)
PROC: 0DB68ZZ Excision of Stomach, Via Natural or Artificial Opening Endoscopic (ICD-10-PCS; principal; 2019-12-28 16:00)
PROC: 0DD98ZX Extraction of Duodenum, Via Natural or Artificial Opening Endoscopic, Diagnostic (ICD-10-PCS; 2019-12-28 16:00)
DX: R10.13 Epigastric pain (principal); Z87.891 Personal history of nicotine dependence; J45.909 Unspecified asthma, uncomplicated; K21.9 Gastro-esophageal reflux disease without esophagitis; R74.0 Nonspecific elevation of levels of transaminase and lactic acid dehydrogenase [LDH]; M19.90 Unspecified osteoarthritis, unspecified site; F03.90 Unspecified dementia, unspecified severity, without behavioral disturbance, psychotic disturbance, mood disturbance, and anxiety; K75.81 Nonalcoholic steatohepatitis (NASH); E66.9 Obesity, unspecified; Z68.33 Body mass index [BMI] 33.0-33.9, adult
CPT/HCPCS: 36415; 70450; 76705; 80053; 81003; 83690; 83735; 85025; 96361; 96374; 96375; 99285-25; J0171; J1170; J2405; J2765; J7030; J7120

== ENCOUNTER → 2020-03-19 | Outpatient (CLI) | payer MEDICARE ==
[~2020-03-19] MED LIST changes: +ALBU2.5V5 NEB; +ASCO500 PO; +Aspir 8181 MG PO; +DICLOFENAC SOD100 G1 TOP; +MECL25 PO; +MIRALAX17 GM PO; +Ventolin/Prove6.7 GM INH; +Vitamin D2000 UNIT PO
== END ==
LOC: LAB SHORT 15:10 → LAB EV 15:10
DX: R30.9 Painful micturition, unspecified (principal)
CPT/HCPCS: 87077; 87086; 87186

== ENCOUNTER → 2020-04-10 | Outpatient (CLI) | payer MEDICARE ==
[2020-04-10 15:44] LABS: BASOPHILS PERCENT AUTO 1 % (0-2); EOSINOPHILS ABSOLUTE AUTO 0.07 K/mm3 (0.00-0.68); EOSINOPHILS PERCENT AUTO 1 % (0-6); Hematocrit 43.4 % (33.0-51.0); Hemoglobin 14.1 g/dL (11.5-16.0); IMMATURE GRAN ABSOLUTE AUTO 0.08 K/mm3 (0.00-0.10); IMMATURE GRAN PERCENT AUTO 1 % (0-1); LYMPHOCYTES ABSOLUTE AUTO 3.59 K/mm3 (0.84-5.20); LYMPHOCYTES PERCENT AUTO 31 % (21-46); MONOCYTES ABSOLUTE AUTO 1.11 K/mm3 (0.16-1.47); MONOCYTES PERCENT AUTO 10 % (4-13); Mean Corpuscular HGB 29.5 pg (26.0-34.0); Mean Corpuscular HGB Conc 32.5 g/dL (31.5-36.5); Mean Corpuscular Volume 91 fL (80-100); Mean Platelet Volume 9.9 fL (9.1-12.4); NEUTROPHILS ABSOLUTE AUTO 6.63 K/mm3 (1.96-9.15); NEUTROPHILS PERCENT AUTO 57 % (41-73); Platelet Count 208 K/mm3 (150-400); RDW Coefficient Variation 14.4 % (11.7-14.2); RDW Standard Deviation 47.5 fL (35.1-46.3); Red Blood Cell Count 4.78 M/mm3 (3.80-5.20); White Blood Cell Count 11.58 K/mm3 (4.00-11.30)
[2020-04-10 16:02] LABS: Anion Gap 11 mmol/L (6-16); Blood Urea Nitrogen 16 mg/dL (8-24); Bun/Creatinine Ratio 18.6 (12.0-20.0); CO2, Blood 24 mmol/L (21-32); Calcium, Blood 9.3 mg/dL (8.5-10.1); Chloride, Blood 97 mmol/L (98-108); Creatinine, Blood 0.86 mg/dL (0.40-1.00); Glomerular Filtration Rate >60 (60-); Glucose, Blood 151 mg/dL (70-99); Potassium, Blood 3.7 mmol/L (3.5-5.5); Sodium, Blood 132 mmol/L (136-145); Thyroid Stimulating Hormone 0.845 uIU/mL (0.360-4.800)
== END | disposition home or self-care (01) ==
LOC: LAB EV 15:38 → LAB SHORT 15:38
PROVIDERS: Physician Assistant Surgical
DX: N39.0 Urinary tract infection, site not specified (principal); R42 Dizziness and giddiness; R53.83 Other fatigue
CPT/HCPCS: 80048; 84443; 85025; 87077; 87086; 87186

== ENCOUNTER → 2020-05-06 | Outpatient (CLI) | payer MEDICARE | END | disposition home or self-care (01) | LOC: LAB SHORT 12:41 → LAB EV 12:41 | DX: N39.0 Urinary tract infection, site not specified (principal); M26.629 Arthralgia of temporomandibular joint, unspecified side | CPT/HCPCS: 85651; 87077; 87086; 87186 ==

== ENCOUNTER → 2020-05-27 | Outpatient (CLI) | payer MEDICARE | END | disposition home or self-care (01) | LOC: LAB 16:54 → LAB SHORT 16:54 | DX: N39.0 Urinary tract infection, site not specified (principal) | CPT/HCPCS: 87077; 87086; 87186 ==

== ENCOUNTER → 2020-09-18 | Outpatient (CLI) | payer MEDICARE | LOC: LAB 14:15 → LAB SHORT 14:15 | DX: N39.0 Urinary tract infection, site not specified (principal) | CPT/HCPCS: 87086 ==

== ENCOUNTER → 2020-10-28 | Outpatient (CLI) | payer MEDICARE | END | disposition home or self-care (01) | LOC: LAB SHORT 13:43 → LAB EV 13:43 | DX: N39.0 Urinary tract infection, site not specified (principal) | CPT/HCPCS: 87077; 87086; 87186 ==

== ENCOUNTER → 2021-05-02 | Outpatient (CLI) | payer MEDICARE | END | disposition home or self-care (01) | LOC: LAB SHORT 15:12 | DX: N39.0 Urinary tract infection, site not specified (principal) | CPT/HCPCS: 87077; 87086; 87186 ==

== ENCOUNTER → 2021-05-03 | Outpatient (CLI) | payer MEDICARE ==
[2021-05-03 11:00] LABS: BASOPHILS ABSOLUTE AUTO 0.12 K/mm3 (0.00-0.23); BASOPHILS PERCENT AUTO 1 % (0-2); EOSINOPHILS ABSOLUTE AUTO 0.08 K/mm3 (0.00-0.68); EOSINOPHILS PERCENT AUTO 1 % (0-6); Hemoglobin 14.2 g/dL (11.5-16.0); IMMATURE GRAN ABSOLUTE AUTO 0.06 K/mm3 (0.00-0.10); IMMATURE GRAN PERCENT AUTO 1 % (0-1); LYMPHOCYTES PERCENT AUTO 17 % (21-46); MONOCYTES ABSOLUTE AUTO 0.74 K/mm3 (0.16-1.47); MONOCYTES PERCENT AUTO 7 % (4-13); Mean Corpuscular HGB Conc 33.8 g/dL (31.5-36.5); Mean Corpuscular Volume 86 fL (80-100); NEUTROPHILS ABSOLUTE AUTO 7.95 K/mm3 (1.96-9.15); NEUTROPHILS PERCENT AUTO 74 % (41-73); Platelet Count 183 K/mm3 (150-400); RDW Coefficient Variation 13.7 % (11.7-14.2); RDW Standard Deviation 42.8 fL (35.1-46.3); White Blood Cell Count 10.75 K/mm3 (4.00-11.30)
[2021-05-03 11:11] LABS: Albumin, Blood 3.5 g/dL (3.4-5.0); Albumin/Globulin Ratio 0.8 (0.8-1.8); Bilirubin, Total 0.8 mg/dL (0.1-1.0); Calcium, Blood 9.1 mg/dL (8.5-10.1); Globulin, Blood 4.3 g/dL (2.2-4.0); Potassium, Blood 4.4 mmol/L (3.5-5.5); Total Protein, Blood 7.8 g/dL (6.4-8.2)
== END | disposition home or self-care (01) ==
LOC: LAB SHORT 10:56
PROVIDERS: Physician Assistant
DX: N10 Acute pyelonephritis (principal)
CPT/HCPCS: 80053; 85025

== ENCOUNTER → 2021-05-28 | Outpatient (CLI) | payer MEDICARE | LOC: LAB SHORT 16:44 | DX: N39.0 Urinary tract infection, site not specified (principal); Z88.2 Allergy status to sulfonamides; Z91.048 Other nonmedicinal substance allergy status; Z88.1 Allergy status to other antibiotic agents; Z88.8 Allergy status to other drugs, medicaments and biological substances; Z91.041 Radiographic dye allergy status | CPT/HCPCS: 87077; 87086; 87186 ==

== ENCOUNTER → 2021-07-14 | Outpatient (CLI) | payer MEDICARE | END | disposition home or self-care (01) | LOC: LAB SHORT 10:00 → LAB 10:00 | DX: N39.0 Urinary tract infection, site not specified (principal) | CPT/HCPCS: 87077; 87086; 87186 ==

== ENCOUNTER → 2021-08-21 | Outpatient (CLI) | payer MEDICARE ==
[2021-08-22 09:49] LABS: Candida species (DNA Probe) Positive (NEGATIVE); G. vaginalis (DNA Probe) Negative (NEGATIVE); T. vaginalis (DNA Probe) Negative (NEGATIVE)
== END | disposition home or self-care (01) ==
LOC: LAB SHORT 17:00
PROVIDERS: Family Medicine
DX: N89.8 Other specified noninflammatory disorders of vagina (principal)
CPT/HCPCS: 87480; 87510; 87660

== ENCOUNTER → 2021-09-10 | Outpatient (CLI) | payer MEDICARE | END | disposition home or self-care (01) | LOC: LAB SHORT 14:56 | DX: N39.0 Urinary tract infection, site not specified (principal) | CPT/HCPCS: 87077; 87086; 87186 ==

== ENCOUNTER → 2021-10-03 | Outpatient (CLI) | payer MEDICARE | LOC: LAB 11:24 → LAB SHORT 11:24 | DX: N39.0 Urinary tract infection, site not specified (principal) | CPT/HCPCS: 87077; 87086; 87186 ==

== ENCOUNTER → 2022-07-28 | Outpatient (CLI) | payer MEDICARE ==
[2022-07-29 09:25] LABS: Candida species (DNA Probe) Positive (NEGATIVE); G. vaginalis (DNA Probe) Negative (NEGATIVE); T. vaginalis (DNA Probe) Negative (NEGATIVE)
== END | disposition home or self-care (01) ==
LOC: LAB SHORT 15:51 → LAB 15:51
PROVIDERS: Obstetrics & Gynecology
DX: N76.0 Acute vaginitis (principal)
CPT/HCPCS: 87480; 87510; 87660

== ENCOUNTER → 2023-01-14 | Outpatient (CLI) | payer MEDICARE ==
[2023-01-15 09:52] LABS: Candida species (DNA Probe) Positive (NEGATIVE); G. vaginalis (DNA Probe) Negative (NEGATIVE); T. vaginalis (DNA Probe) Negative (NEGATIVE)
== END | disposition home or self-care (01) ==
LOC: LAB SHORT 11:21 → LAB 11:21
PROVIDERS: Family Medicine
DX: N89.8 Other specified noninflammatory disorders of vagina (principal)
CPT/HCPCS: 87480; 87510; 87660

== ENCOUNTER → 2023-04-15 | Outpatient (CLI) | payer MEDICARE ==
[2023-04-16 08:40] LABS: Candida species (DNA Probe) Positive (NEGATIVE); G. vaginalis (DNA Probe) Negative (NEGATIVE); T. vaginalis (DNA Probe) Negative (NEGATIVE)
== END | disposition home or self-care (01) ==
LOC: LAB SHORT 12:00 → LAB 12:00
PROVIDERS: Family Medicine
DX: Z46.89 Encounter for fitting and adjustment of other specified devices (principal)
CPT/HCPCS: 87480; 87510; 87660

== ENCOUNTER → 2023-05-31 | Outpatient (CLI) | payer MEDICARE ==
[2023-06-01 11:38] LABS: Candida species (DNA Probe) Positive (NEGATIVE); G. vaginalis (DNA Probe) Negative (NEGATIVE); T. vaginalis (DNA Probe) Negative (NEGATIVE)
== END | disposition home or self-care (01) ==
LOC: LAB 12:19 → LAB SHORT 12:19
PROVIDERS: Family Medicine
DX: Z46.89 Encounter for fitting and adjustment of other specified devices (principal)
CPT/HCPCS: 87480; 87510; 87660

== ENCOUNTER → 2023-06-15 | Outpatient (CLI) | payer MEDICARE ==
[2023-06-17 02:09] LABS: CHLAMYDIA TRACHOMATIS, NAA Negative (Negative)
== END | disposition home or self-care (01) ==
LOC: LAB 09:04 → LAB SHORT 09:04
PROVIDERS: Family Medicine
DX: N76.5 Ulceration of vagina (principal)
CPT/HCPCS: 87070; 87077; 87186; 87205; 87491; 87591

== ENCOUNTER → 2023-08-06 | Outpatient (CLI) | payer MEDICARE | END | disposition home or self-care (01) | LOC: LAB 15:52 → LAB SHORT 15:52 | DX: N39.0 Urinary tract infection, site not specified (principal) | CPT/HCPCS: 87077; 87086; 87186 ==

== ENCOUNTER → 2023-08-17 | Outpatient (CLI) | payer MEDICARE ==
[2023-08-18 09:34] LABS: Candida species (DNA Probe) Positive (NEGATIVE); G. vaginalis (DNA Probe) Negative (NEGATIVE); T. vaginalis (DNA Probe) Negative (NEGATIVE)
== END ==
LOC: LAB SHORT 11:17 → LAB 11:17
PROVIDERS: Family Medicine
DX: Z46.89 Encounter for fitting and adjustment of other specified devices (principal)
CPT/HCPCS: 87480; 87510; 87660

== ENCOUNTER → 2023-09-01 | Outpatient (CLI) | payer MEDICARE | LOC: LAB 11:48 → LAB SHORT 11:48 | DX: R30.0 Dysuria (principal) | CPT/HCPCS: 87077; 87086; 87186 ==

== ENCOUNTER → 2023-09-21 | Outpatient (CLI) | payer MEDICARE | END | disposition home or self-care (01) | LOC: LAB 11:14 → LAB SHORT 11:14 | DX: R30.9 Painful micturition, unspecified (principal) | CPT/HCPCS: 87077; 87086; 87186 ==

== ENCOUNTER → 2024-03-30 | Outpatient (CLI) | payer MEDICARE ==
[2024-03-30 16:09] LABS: BASOPHILS ABSOLUTE AUTO 0.11 K/mm3 (0.00-0.23); BASOPHILS PERCENT AUTO 1 % (0-2); EOSINOPHILS ABSOLUTE AUTO 0.04 K/mm3 (0.00-0.68); EOSINOPHILS PERCENT AUTO 1 % (0-6); Hematocrit 38.9 % (33.0-51.0); Hemoglobin 12.9 g/dL (11.5-16.0); IMMATURE GRAN ABSOLUTE AUTO 0.04 K/mm3 (0.00-0.10); IMMATURE GRAN PERCENT AUTO 1 % (0-1); LYMPHOCYTES ABSOLUTE AUTO 2.45 K/mm3 (0.84-5.20); LYMPHOCYTES PERCENT AUTO 30 % (21-46); MONOCYTES ABSOLUTE AUTO 0.71 K/mm3 (0.16-1.47); MONOCYTES PERCENT AUTO 9 % (4-13); Mean Corpuscular HGB Conc 33.2 g/dL (31.5-36.5); Mean Corpuscular Volume 84 fL (80-100); Mean Platelet Volume 10.1 fL (9.1-12.4); NEUTROPHILS ABSOLUTE AUTO 4.91 K/mm3 (1.96-9.15); NEUTROPHILS PERCENT AUTO 59 % (41-73); Platelet Count 167 K/mm3 (150-400); RDW Coefficient Variation 14.3 % (11.7-14.2); RDW Standard Deviation 44.5 fL (35.1-46.3); Red Blood Cell Count 4.61 M/mm3 (3.80-5.20); White Blood Cell Count 8.26 K/mm3 (4.00-11.30)
[2024-03-30 16:19] LABS: Albumin, Blood 3.4 g/dL (3.4-5.0); Albumin/Globulin Ratio 0.8 (0.8-1.8); Bilirubin, Total 0.5 mg/dL (0.1-1.0); Bun/Creatinine Ratio 14.5 (12.0-20.0); Calcium, Blood 9.2 mg/dL (8.5-10.1); Creatinine, Blood 1.17 mg/dL (0.40-1.00); Globulin, Blood 4.2 g/dL (2.2-4.0); Potassium, Blood 4.4 mmol/L (3.5-5.5); Total Protein, Blood 7.6 g/dL (6.4-8.2)
== END ==
LOC: LAB 16:04 → LAB SHORT 16:04
PROVIDERS: Family Medicine
DX: R07.89 Other chest pain (principal); E11.9 Type 2 diabetes mellitus without complications; M25.50 Pain in unspecified joint
CPT/HCPCS: 36415; 80053; 83036; 84484; 85025; 85379; 85651; 86038; 86140

== ENCOUNTER → 2024-03-30 | Outpatient (CLI) | payer MEDICARE ==
[2024-04-01 05:02] LABS: ANTI-NUCLEAR AB ANA,IGG ELISA None Detected (None Detected)
== END ==
LOC: LAB 16:16 → LAB SHORT 16:16
PROVIDERS: Family Medicine
DX: E11.9 Type 2 diabetes mellitus without complications (principal); M25.50 Pain in unspecified joint
CPT/HCPCS: 36415; 83036; 85651; 86038; 86140

== ENCOUNTER 2024-05-14 09:20 | Inpatient (IN) | payer MEDICARE ==
[~2024-05-14] VITALS: Ht 167.6 cm; Wt 91.0 kg
[2024-05-14 09:47] LABS: BASOPHILS ABSOLUTE AUTO 0.09 K/mm3 (0.00-0.23); BASOPHILS PERCENT AUTO 1 % (0-2); EOSINOPHILS ABSOLUTE AUTO 0.07 K/mm3 (0.00-0.68); EOSINOPHILS PERCENT AUTO 1 % (0-6); Hematocrit 38.9 % (33.0-51.0); Hemoglobin 12.2 g/dL (11.5-16.0); IMMATURE GRAN ABSOLUTE AUTO 0.04 K/mm3 (0.00-0.10); IMMATURE GRAN PERCENT AUTO 1 % (0-1); LYMPHOCYTES PERCENT AUTO 40 % (21-46); MONOCYTES PERCENT AUTO 8 % (4-13); Mean Corpuscular HGB 27.7 pg (26.0-34.0); Mean Corpuscular HGB Conc 31.4 g/dL (31.5-36.5); Mean Corpuscular Volume 88 fL (80-100); Mean Platelet Volume 9.8 fL (9.1-12.4); NEUTROPHILS ABSOLUTE AUTO 3.86 K/mm3 (1.96-9.15); NEUTROPHILS PERCENT AUTO 50 % (41-73); Platelet Count 169 K/mm3 (150-400); RDW Coefficient Variation 14.3 % (11.7-14.2); RDW Standard Deviation 46.4 fL (35.1-46.3); White Blood Cell Count 7.76 K/mm3 (4.00-11.30)
[2024-05-14 10:03] LABS: Albumin, Blood 3.1 g/dL (3.4-5.0); Albumin/Globulin Ratio 0.9 (0.8-1.8); Bilirubin, Total 0.5 mg/dL (0.1-1.0); Bun/Creatinine Ratio 19.3 (12.0-20.0); Calcium, Blood 8.9 mg/dL (8.5-10.1); Creatinine, Blood 0.72 mg/dL (0.40-1.00); Globulin, Blood 3.6 g/dL (2.2-4.0); Potassium, Blood 4.4 mmol/L (3.5-5.5); Total Protein, Blood 6.7 g/dL (6.4-8.2)
[2024-05-14] MEDS ORDERED: Aspirin 325 MG Tab PO ONE (11:55)
[2024-05-14] MEDS ORDERED: Morphine Sulfate 4 MG/1 ML Injection IV ONE (12:00)
[2024-05-14] MEDS ORDERED: Ondansetron HCl 2 MG / ML 2ML Vial IV ONE (12:00)
[2024-05-14] MEDS ORDERED: FLU VACC TS2024-25(6MOS UP)/PF 45 MCG/0.5 ML SYRINGE IM ONE (13:15)
[2024-05-14] MEDS ORDERED: Morphine Sulfate 4 MG/1 ML Injection IV PRN (14:55)
[2024-05-14 15:43] VITALS: BP 119/62
--- NOTE | 2024-05-14 15:58 | NUR ---
TRANSFER NOTE: PT TRANSFERRED INTO ROOM 324 FROM ER. PT AOX4 BUT SEVERE PAIN WHEN MOVING. COMPLAINS OF NERVE PAIN/ SPASMS FROM THE HIP DOWN THE LEFT LEG. STILL NO MOVEMENTIN HER LEFT LEG BUT SOME MOVEMENT IN HER LEFT ARM. NO NOTICEABLE FACIAL CHANGES. SLID FROM RNEY TO HOSPITAL BED WITHOUT ISSUE. BED IN LOWEST POSITON, ORIENTED TO ROOM, CALL LIGHT IN REACH. CONTINUING CARE.
[2024-05-14] MEDS ORDERED: Albuterol 2.5 MG/3 ML VIAL INH PRN (17:10)
[2024-05-14] MEDS ORDERED: Mometasone/Formoterol MDI 200/5 mcg 13 GM INH SCH (17:15)
--- NOTE | 2024-05-14 17:29 | NUR ---
CALLED INTO ROOM BY FAMILY MEMBERS STATING THE PATIENT HAD TO PEE BAD. NO INFO WAS WRITTEN ON THE WHITE BOARD ABOUT THE PATIENT. COULD NOT FIND THE AIDE. PLACED PATIENT ON A BEDPAN.
[2024-05-14] MEDS ORDERED: Baclofen 10 MG Tab PO PRN (17:30)
--- NOTE | 2024-05-14 18:01 | NUR ---
SHIFT SUMMARY: PT ARRIVED FROM ED AT 1654, AOX4. LEFT FACIAL DROOP AND LEFT SIDED WEAKNESS. COMPLAINS OF PAIN IN THE L LEG AND HIP. SPASMING INTERMITTENTLY AND SEEMINGLY AT RANDOM. DOCTOR AWARE. REQUEST TRAY AND IS CURRENTLY EATING. LUNGS CLEAR BILATERALLY AND REGULAR HEART SOUNDS. BED IN LOWSET POSITION AND CALL LIGHT IN REACH. CONTINUING CARE.
--- NOTE | 2024-05-14 19:06 | NUR ---
THIS ACCOUNT AUDITOR HAS REVIEWED AND AGREES WITH ALL NOTES AND ASSESSMENTS BY SHANKAR VELASCO.
[2024-05-14 19:59] VITALS: BP 128/57
[2024-05-14] MEDS ORDERED: Donepezil HCl 5 MG Tab PO SCH (21:00)
[2024-05-15 03:32] VITALS: BP 148/93
--- NOTE | 2024-05-15 04:54 | NUR ---
SHIFT SUMMARY: Pt is admitted for CVA and is a full code. Is alert and able to make needs known. ADLs have been 2 but did not get out of bed during shift. Pain has been managed with PRN muscle relaxers, pain management, warm packs and positioning. Alberto reports sinus in the 80s with a 1 deg.
[2024-05-15] MEDS ORDERED: Omeprazole 20 MG CapCR PO SCH (06:00)
[2024-05-15 06:04] LABS: BASOPHILS PERCENT AUTO 1 % (0-2); EOSINOPHILS ABSOLUTE AUTO 0.04 K/mm3 (0.00-0.68); EOSINOPHILS PERCENT AUTO 0 % (0-6); Hematocrit 41.9 % (33.0-51.0); Hemoglobin 13.1 g/dL (11.5-16.0); IMMATURE GRAN ABSOLUTE AUTO 0.04 K/mm3 (0.00-0.10); IMMATURE GRAN PERCENT AUTO 0 % (0-1); LYMPHOCYTES ABSOLUTE AUTO 2.28 K/mm3 (0.84-5.20); LYMPHOCYTES PERCENT AUTO 22 % (21-46); MONOCYTES ABSOLUTE AUTO 0.98 K/mm3 (0.16-1.47); MONOCYTES PERCENT AUTO 10 % (4-13); Mean Corpuscular HGB 27.6 pg (26.0-34.0); Mean Corpuscular HGB Conc 31.3 g/dL (31.5-36.5); Mean Corpuscular Volume 88 fL (80-100); Mean Platelet Volume 9.9 fL (9.1-12.4); NEUTROPHILS ABSOLUTE AUTO 6.88 K/mm3 (1.96-9.15); NEUTROPHILS PERCENT AUTO 67 % (41-73); Platelet Count 159 K/mm3 (150-400); RDW Coefficient Variation 14.3 % (11.7-14.2); RDW Standard Deviation 45.8 fL (35.1-46.3); Red Blood Cell Count 4.75 M/mm3 (3.80-5.20); White Blood Cell Count 10.32 K/mm3 (4.00-11.30)
[2024-05-15 06:36] LABS: Very Low Density Lipoprot Chol 21 mg/dL (6-32)
[2024-05-15 06:41] LABS: Anion Gap 11 mmol/L (3-11); Blood Urea Nitrogen 12 mg/dL (8-24); Bun/Creatinine Ratio 17.6 (12.0-20.0); CHOL/HDL RATIO 2.5; CO2, Blood 27 mmol/L (21-32); Calcium, Blood 9.1 mg/dL (8.5-10.1); Chloride, Blood 100 mmol/L (98-108); Cholesterol 189 mg/dL (50-200); Creatinine, Blood 0.68 mg/dL (0.40-1.00); Glomerular Filtration Rate 86 (60-); Glucose, Blood 182 mg/dL (70-99); HDL Cholesterol 77 mg/dL (>39); LDL/HDL RATIO 1.2; Low Density Lipoprotein Chol 91 mg/dL (0-110); Potassium, Blood 3.9 mmol/L (3.5-5.5); Sodium, Blood 134 mmol/L (136-145); Triglycerides 107 mg/dL (30-160)
[2024-05-15 07:38] VITALS: BP 143/70
[2024-05-15] MEDS ORDERED: Ondansetron HCl 2 MG / ML 2ML Vial IV PRN (08:50)
[2024-05-15] MEDS ORDERED: Enoxaparin 40 MG/0.4 ML SYR SC SCH (09:00)
[2024-05-15] MEDS ORDERED: Atorvastatin 40 MG Tab PO SCH (09:00)
[2024-05-15] MEDS ORDERED: Citalopram Hydrobromide 20 MG Tab PO SCH (09:00)
[2024-05-15] MEDS ORDERED: Aspirin 81 MG Chew PO SCH (09:00)
--- NOTE | 2024-05-15 09:29 | NUR ---
Pt. is awake in bed and feeding herself with her right arm. Pt. is pleasant, but verbalized that she didn't have much movement on her left side. Pt. verbalized that the scans confirming stroke came back negative, but did not expain her current condition. Listen with empathy and interest. Pt. reuqested that this chick sexer attempt to communicate to her catholic in [place] about her admission. Prayed with Pt. Pt. verbalized gratitude for the spiritual care visit and welcomed this chick sexer to return.
[2024-05-15] MEDS ORDERED: Clopidogrel Bisulfate 75 MG Tab PO SCH (11:00)
--- NOTE | 2024-05-15 17:36 | NUR ---
SHIFT NOTE: PT A/OX4 ABLE TO MAKE HER NEEDS KNOWN. SHE IS PLEASANT AND COOPERATIVE WITH CARE. SHE IS ON TELE IN NSR WITH A PACER. SHE HAS LEFT SIDED DEFECITS, WITH A FLACCID LEFT LEG. PUREWICK IN PLACE TO PROTECT SKIN. SHE HAS MUSCLE SPASMS AND PAIN-MEDICATED PER EMAR. SHE TAKES HER MEDS WHOLE WITH WATER. CALL LIGHT IN REACH
[2024-05-15 20:28] VITALS: BP 133/107
[2024-05-16 03:53] VITALS: BP 127/68
--- NOTE | 2024-05-16 04:55 | NUR ---
SHIFT SUMMARY. PATIENT IS A&OX4. PATIENT IS ABLE TO MAKE HER NEEDS KNOWN. PATIENT HAS PUREWICK IN PLACE D/T IMMOBILITY RELATED TO CVA- LEFT LEG FLACCID. PATIENT REPORTS PAIN TO BLE R/T MUSCLE SPASMS-PRN PAIN MEDICATION X1-SEE ORDERS. PATIENT IS PLEASANT AND COOPERATIVE WITH CARE. PLAN IS FOR PATIENT TO DISCHARGE TO SNF FOR REHAB. BED IS LOCKED IN THE LOWEST POSITION WITH CALL LIGHT IN REACH. CARE IS ONGOING.
[2024-05-16 07:27] VITALS: BP 109/83
[2024-05-16 14:56] VITALS: BP 132/90
--- NOTE | 2024-05-16 15:36 | NUR ---
DR ROCKWELL TO PUT IN ORDERS FOR A ORTHO CONSULT AND STATED PATIENT TO BE NW TO THE LEFT FOOT, ORDERS HAVE NOT BEEN ENTERED YET
[2024-05-16] MEDS ORDERED: HyDROXyzine HCl 10 MG Tab PO PRN (20:45)
[2024-05-16 20:58] VITALS: BP 142/56
--- NOTE | 2024-05-17 03:54 | NUR ---
SHIFT SUMMARY. PATIENT IS A&OX4. PATIENT CALLS APPROPRIATELY AND IS ABLE TO MAKE HER NEEDS KNOWN. PATIENT REPORTING OF ELEVATED PAIN THIS SHIFT. PATIENT HAVING INCREASED ANXIETY TONIGHT-HOSPITALIST CONTACTED, SEE PREVIOUS NOTES. PATIENT HAS BEEN MEDICATED PER EMAR FOR PAIN AND ANXIETY. PATIENT IS NON-WEIGHT BEARING TO LEFT LEG UNTIL PATIENT RECEIVES BOOT-ONCE BOPOT ARRIVES PATIENT MAY INCREASE WEIGHT TO LEFT LEG. PLAN IS FOR PATIENT TO DISCHARGE TO SNF FOR REHAB. BED IS LOCKED IN THE LOWEST POSITION WITH CALL LIGHT IN REACH CARE IS ONGOING.
[2024-05-17 05:43] LABS: BASOPHILS ABSOLUTE AUTO 0.09 K/mm3 (0.00-0.23); BASOPHILS PERCENT AUTO 1 % (0-2); EOSINOPHILS ABSOLUTE AUTO 0.07 K/mm3 (0.00-0.68); EOSINOPHILS PERCENT AUTO 1 % (0-6); Hematocrit 38.4 % (33.0-51.0); Hemoglobin 12.2 g/dL (11.5-16.0); IMMATURE GRAN ABSOLUTE AUTO 0.04 K/mm3 (0.00-0.10); IMMATURE GRAN PERCENT AUTO 0 % (0-1); LYMPHOCYTES PERCENT AUTO 32 % (21-46); MONOCYTES ABSOLUTE AUTO 1.06 K/mm3 (0.16-1.47); MONOCYTES PERCENT AUTO 11 % (4-13); Mean Corpuscular HGB 27.5 pg (26.0-34.0); Mean Corpuscular HGB Conc 31.8 g/dL (31.5-36.5); Mean Corpuscular Volume 87 fL (80-100); NEUTROPHILS ABSOLUTE AUTO 5.08 K/mm3 (1.96-9.15); NEUTROPHILS PERCENT AUTO 55 % (41-73); Platelet Count 156 K/mm3 (150-400); RDW Coefficient Variation 14.2 % (11.7-14.2); RDW Standard Deviation 45.2 fL (35.1-46.3); Red Blood Cell Count 4.43 M/mm3 (3.80-5.20); White Blood Cell Count 9.34 K/mm3 (4.00-11.30)
[2024-05-17 06:09] VITALS: BP 106/52
[2024-05-17 06:14] LABS: Albumin, Blood 2.8 g/dL (3.4-5.0); Albumin/Globulin Ratio 0.8 (0.8-1.8); Bilirubin, Total 0.5 mg/dL (0.1-1.0); Bun/Creatinine Ratio 24.8 (12.0-20.0); Calcium, Blood 9.1 mg/dL (8.5-10.1); Creatinine, Blood 0.65 mg/dL (0.40-1.00); Globulin, Blood 3.7 g/dL (2.2-4.0); Potassium, Blood 4.3 mmol/L (3.5-5.5); Total Protein, Blood 6.5 g/dL (6.4-8.2)
[2024-05-17 08:24] VITALS: BP 136/65
[2024-05-17] MEDS ORDERED: HYDROcodone 5-APAP 325 TAB PO PRN (12:00)
[2024-05-17 15:14] VITALS: BP 132/53
--- NOTE | 2024-05-17 18:27 | NUR ---
SUMMARY- PT A/O X4, USES CALL LIGHT TO MAKE NEEDS KNOWN. PT CONT WITH L SIDE DEFICIT, L ARM FLACID, MIN [id number] IN L LEG WITH NUMBNESS OF L SIDE. SWALLOW IS INTACT, SPEECH CLEARED PT WITH SWALLOW EVAL. HAS BEEN BEDREST ALL DAY BECAUSE L HIP XRAY PENDING AND PT/OT COULD NOT EVAL PT. FX BOOT HAS ARRIVED AND WILL BE USED FOR ANY ACTIVITY OOB. PT IS HAVING SEVERE PAIN IN L SACROILLIAC REGION, COMES ON A SPASM AND PT CRIES OUT IN PAIN. MEDICATED THIS AM WITH MORPHINE 2MG WITH ADQ RELEIF FOR A BREIF PERIOD. TRIED NORCO 5MG WITH MIN RELEIF, GIVEN MS 2MG ALTERNATING WITH NORCO WITH ADQ RELEIF. PT TOLERATING FOOD AND FLUIDS. USING A PUREWIC FOR VOID. WILL REPORT TO NOC SHANKAR
[2024-05-17 19:58] VITALS: BP 116/47
[2024-05-18 04:06] VITALS: BP 122/59
--- NOTE | 2024-05-18 04:29 | NUR ---
SHIFT SUMMARY. PATIENT IS A &OX4. PATIENT IS PLEASANT AND COOPERATIVE WITH CARE. PATIENT CALLS APPROPRIATELY AND IS ABLE TO MAKE HER NEEDS KNOWN. PATIENT C/O PAIN-MEDICATED PER ORDERS FOR PAIN-SEE EMAR. PATIENT REPOSITIONED T/O NIGHT. PATIENT PREFERS TO HAVE HER LEFT SIDE ELEVATED OVER HER RIGHT. BED IS LOCKED IN THELOWEST POSITION WITH CALL LIGHT IN REACH. CARE IS ONGOING.
[2024-05-18 08:06] VITALS: BP 126/63
[2024-05-18] MEDS ORDERED: Polyethylene Glycol 3350 17 gm PO PRN (09:35)
[2024-05-18] MEDS ORDERED: Bisacodyl 5 MG TabEC PO PRN (09:35)
[2024-05-18] MEDS ORDERED: CEPH500 (09:35)
[2024-05-18] MEDS ORDERED: MIRALAX1714 PO (09:36)
[2024-05-18] MEDS ORDERED: HYDROcodone 7.5-APAP 325 TAB PO PRN ×3 (11:25→11:45)
--- NOTE | 2024-05-18 13:07 | NUR ---
PATIENT D/C'D VIA GURNEY TRANSPORT TO [facility]. NO C/O AT THIS TIME.
[2024-05-18] MEDS ORDERED: BACLOFEN5 M1 PO (13:48)
[2024-05-18] MEDS ORDERED: Celexa20 MG PO (13:49)
[2024-05-18] MEDS ORDERED: BISA5EC PO (13:49)
[2024-05-18] MEDS ORDERED: CLOP75 PO (13:50)
[2024-05-18] MEDS ORDERED: HYDHCL25 PO (13:52)
[2024-05-18] MEDS ORDERED: Norco 7.5-3251 EACH PO (13:52)
[2024-05-18] MEDS ORDERED: DULERA 100 MCG/13 GM INH (13:57)
[2024-05-18] MEDS ORDERED: METF500 PO (14:00)
== END 2024-05-18 13:10 | DRG 65 ==
LOC: ER 09:20 → MEDS 09:21 → ENPENDDIS 05-18 11:49 → MEDS 05-18 13:10
PROVIDERS: Emergency Medicine; Internal Medicine; ADMIT Internal Medicine
DX: I63.531 Cerebral infarction due to unspecified occlusion or stenosis of right posterior cerebral artery (principal); F03.93 Unspecified dementia, unspecified severity, with mood disturbance; J84.9 Interstitial pulmonary disease, unspecified; G81.94 Hemiplegia, unspecified affecting left nondominant side; F03.94 Unspecified dementia, unspecified severity, with anxiety; I63.511 Cerebral infarction due to unspecified occlusion or stenosis of right middle cerebral artery; I10 Essential (primary) hypertension; F41.8 Other specified anxiety disorders; J45.909 Unspecified asthma, uncomplicated; I48.91 Unspecified atrial fibrillation; M53.3 Sacrococcygeal disorders, not elsewhere classified; S82.65XA Nondisplaced fracture of lateral malleolus of left fibula, initial encounter for closed fracture; E11.65 Type 2 diabetes mellitus with hyperglycemia; W18.30XA Fall on same level, unspecified, initial encounter; Z88.2 Allergy status to sulfonamides; Z88.1 Allergy status to other antibiotic agents; Z88.8 Allergy status to other drugs, medicaments and biological substances; Z95.0 Presence of cardiac pacemaker; Z91.048 Other nonmedicinal substance allergy status; Z79.899 Other long term (current) drug therapy; Z79.82 Long term (current) use of aspirin; Z90.49 Acquired absence of other specified parts of digestive tract; Z90.710 Acquired absence of both cervix and uterus; Z98.890 Other specified postprocedural states; Z87.19 Personal history of other diseases of the digestive system
CPT/HCPCS: 36415; 70450; 70496; 70498; 73502; 73562-LT; 73600; 80048; 80053; 80061; 83036; 85025; 92526; 92610; 93005; 93010; 93306; 94640; 94664; 94760; 96374-59; 96375-59; 96376-59; 97110; 97112; 97140; 97161; 97165; 97530; 99285-25; A9270; G0378; J1650; J2270; J2405; Q9967

== ENCOUNTER 2024-05-24 09:36 | Emergency (ER) | payer MEDICARE ==
[~2024-05-24] VITALS: Ht 167.6 cm; Wt 79.4 kg
[~2024-05-24 09:36] MED LIST changes: +BACLOFEN5 M1 PO; +BISA5EC PO; +CEPH500; +CLOP75 PO; +Celexa20 MG PO; +DULERA 100 MCG/13 GM INH; +HYDHCL25 PO; +METF500 PO; +MIRALAX1714 PO; +Norco 7.5-3251 EACH PO; -Omeprazole20 M1 PO
[2024-05-24] MEDS ORDERED: Ondansetron HCl 2 MG / ML 2ML Vial IV ONE (10:40)
[2024-05-24 10:42] LABS: BASOPHILS PERCENT AUTO 1 % (0-2); EOSINOPHILS ABSOLUTE AUTO 0.06 K/mm3 (0.00-0.68); EOSINOPHILS PERCENT AUTO 1 % (0-6); Hematocrit 39.5 % (33.0-51.0); Hemoglobin 12.9 g/dL (11.5-16.0); IMMATURE GRAN ABSOLUTE AUTO 0.05 K/mm3 (0.00-0.10); IMMATURE GRAN PERCENT AUTO 1 % (0-1); LYMPHOCYTES PERCENT AUTO 31 % (21-46); MONOCYTES ABSOLUTE AUTO 0.92 K/mm3 (0.16-1.47); MONOCYTES PERCENT AUTO 9 % (4-13); Mean Corpuscular HGB 27.7 pg (26.0-34.0); Mean Corpuscular HGB Conc 32.7 g/dL (31.5-36.5); Mean Corpuscular Volume 85 fL (80-100); Mean Platelet Volume 9.6 fL (9.1-12.4); NEUTROPHILS ABSOLUTE AUTO 5.86 K/mm3 (1.96-9.15); NEUTROPHILS PERCENT AUTO 58 % (41-73); Platelet Count 199 K/mm3 (150-400); RDW Standard Deviation 43.3 fL (35.1-46.3); Red Blood Cell Count 4.65 M/mm3 (3.80-5.20); White Blood Cell Count 10.09 K/mm3 (4.00-11.30)
[2024-05-24 11:06] VITALS: BP 121/77
[2024-05-24] MEDS ORDERED: Acetaminophen325 M1 PO (11:12)
[2024-05-24 11:13] LABS: Albumin, Blood 3.1 g/dL (3.4-5.0); Albumin/Globulin Ratio 0.8 (0.8-1.8); Bilirubin, Total 0.5 mg/dL (0.1-1.0); Bun/Creatinine Ratio 28.7 (12.0-20.0); Calcium, Blood 9.1 mg/dL (8.5-10.1); Creatinine, Blood 0.56 mg/dL (0.40-1.00); Potassium, Blood 4.3 mmol/L (3.5-5.5); Total Protein, Blood 7.1 g/dL (6.4-8.2)
[2024-05-24] MEDS ORDERED: ATOR40TA PO (11:13)
[2024-05-24] MEDS ORDERED: BISA10S PR (11:16)
[2024-05-24] MEDS ORDERED: GABA300 PO (11:17)
[2024-05-24] MEDS ORDERED: ONDA4ODT MM (11:22)
[2024-05-24 11:40] LABS: Influenza A, PCR NEGATIVE (NEGATIVE); Influenza B, PCR NEGATIVE (NEGATIVE); Resp Syncytial Virus, PCR NEGATIVE (NEGATIVE); SARS-Cov-2 (COVID-19) PCR, MMC NEGATIVE (NEGATIVE)
[2024-05-24] MEDS ORDERED: OxyCODONE HCL 5 MG TAB PO ONE (13:05)
[2024-05-24] MEDS ORDERED: ALBU90OI INH (13:20)
== END 2024-05-24 14:56 | disposition home or self-care (01) ==
LOC: ER 09:36
PROVIDERS: Student in an Organized Health Care Education/Training Program
DX: J45.901 Unspecified asthma with (acute) exacerbation (principal); R07.9 Chest pain, unspecified; E11.9 Type 2 diabetes mellitus without complications; I48.91 Unspecified atrial fibrillation; Z87.891 Personal history of nicotine dependence; Z79.02 Long term (current) use of antithrombotics/antiplatelets; Z79.899 Other long term (current) drug therapy; Z79.82 Long term (current) use of aspirin; Z88.2 Allergy status to sulfonamides; Z88.1 Allergy status to other antibiotic agents; Z88.8 Allergy status to other drugs, medicaments and biological substances; Z91.048 Other nonmedicinal substance allergy status
CPT/HCPCS: 0241U; 71046; 80053; 83690; 84484; 85025; 93005; 93010; 96374; 99285-25; A9270; J2405

== ENCOUNTER 2024-07-10 05:07 | Inpatient (IN) | payer MEDICARE ==
[~2024-07-10] VITALS: Ht 170.2 cm; Wt 87.2 kg
[~2024-07-10 05:07] MED LIST changes: +ATOR40TA PO; +Acetaminophen325 M1 PO; +BISA10S PR; +GABA300 PO; +ONDA4ODT MM
[2024-07-10] MEDS ORDERED: Ondansetron HCl 2 MG / ML 2ML Vial IV ONE (06:30)
[2024-07-10 06:57] LABS: BASOPHILS ABSOLUTE AUTO 0.09 K/mm3 (0.00-0.23); BASOPHILS PERCENT AUTO 1 % (0-2); EOSINOPHILS ABSOLUTE AUTO 0.08 K/mm3 (0.00-0.68); EOSINOPHILS PERCENT AUTO 1 % (0-6); Hematocrit 39.7 % (33.0-51.0); IMMATURE GRAN ABSOLUTE AUTO 0.07 K/mm3 (0.00-0.10); IMMATURE GRAN PERCENT AUTO 1 % (0-1); LYMPHOCYTES ABSOLUTE AUTO 2.45 K/mm3 (0.84-5.20); LYMPHOCYTES PERCENT AUTO 24 % (21-46); MONOCYTES ABSOLUTE AUTO 0.92 K/mm3 (0.16-1.47); MONOCYTES PERCENT AUTO 9 % (4-13); Mean Corpuscular HGB 28.1 pg (26.0-34.0); Mean Corpuscular HGB Conc 32.7 g/dL (31.5-36.5); Mean Corpuscular Volume 86 fL (80-100); Mean Platelet Volume 9.3 fL (9.1-12.4); NEUTROPHILS ABSOLUTE AUTO 6.53 K/mm3 (1.96-9.15); NEUTROPHILS PERCENT AUTO 64 % (41-73); Platelet Count 188 K/mm3 (150-400); RDW Coefficient Variation 15.2 % (11.7-14.2); RDW Standard Deviation 47.6 fL (35.1-46.3); Red Blood Cell Count 4.63 M/mm3 (3.80-5.20); White Blood Cell Count 10.14 K/mm3 (4.00-11.30)
[2024-07-10 07:27] LABS: Albumin/Globulin Ratio 0.7 (0.8-1.8); Bilirubin, Total 0.6 mg/dL (0.1-1.0); Bun/Creatinine Ratio 21.5 (12.0-20.0); Creatinine, Blood 0.56 mg/dL (0.40-1.00); Globulin, Blood 4.1 g/dL (2.2-4.0); Magnesium, Blood 1.7 mg/dL (1.6-2.4); Potassium, Blood 4.1 mmol/L (3.5-5.5); Total Protein, Blood 7.1 g/dL (6.4-8.2)
[2024-07-10 07:34] LABS: Source, Urine Fem Cath
[2024-07-10] MEDS ORDERED: Morphine Sulfate 4 MG/1 ML Injection IV ONE (07:50)
[2024-07-10 07:56] LABS: Bilirubin, Urine Neg (Neg); Blood, Urine 1+ (Neg); Glucose Qualitative, Urine Neg (Neg); Ketones, Urine Neg (Neg); Leukocyte Esterase, Urine 3+ (Neg); Nitrite, Urine Neg (Neg); Protein, Urine Neg (Neg); Urobilinogen, Urine 1+ (Normal)
[2024-07-10 08:41] LABS: Appearance, Urine Hazy (Clear); Color, Urine Yellow (P-Yellow)
[2024-07-10 08:45] LABS: Bacteria Rare /hpf; Squamous Epithelial Cells Not Seen /hpf (Few); White Blood Cells, Urine 25-50 /hpf (0-5)
[2024-07-10] MEDS ORDERED: CefTRIAXone Sodium 1,000 MG in NS 100 ML IV ONE (09:05)
[2024-07-10] MEDS ORDERED: Ketorolac Tromethamine 30mg Vial IV PRN (12:40)
[2024-07-10] MEDS ORDERED: Ondansetron HCl 2 MG / ML 2ML Vial IV PRN (14:00)
[2024-07-10] MEDS ORDERED: NS 1,000 ML IV SCH (14:00)
[2024-07-10] MEDS ORDERED: FLU VACC TS2024-25(6MOS UP)/PF 45 MCG/0.5 ML SYRINGE IM SCH (14:00)
[2024-07-10] MEDS ORDERED: Baclofen 10 MG Tab PO PRN (16:05)
[2024-07-10] MEDS ORDERED: TraMADol HCl 50 MG Tab PO PRN (16:05)
[2024-07-10] MEDS ORDERED: Promethazine HCl 25 MG Tab PO ONE (18:10)
--- NOTE | 2024-07-10 18:45 | NUR ---
DISCHARGE/TRANSFER 1751 PT ARRIVED TO ROOM VIA GURNEY TRANSPORT VIA METAL MOULDER. TRANSFER TO BED BY SLIDE SHEET. IV INTACT, SKIN CHECK PERFORMED BY THIS RN AND SWAPNIL CHAPARRO. BEDSIDE ASSISTING IN ANSWERING HISTORY. PT REPORTS TIBIA FRACTURE LEFT FOOT 2 INCHES ABOVE ANKLE JOINT. ARRIVED NAESOUS AND SPUTUM EMESIS, MEDICATED PER EMAR. BED IN LOWEST POSITION, CALL LIGHT WITHIN REACH.
[2024-07-10 19:21] VITALS: BP 158/64
[2024-07-10] MEDS ORDERED: Gabapentin 300 MG Cap PO SCH (21:00)
[2024-07-10] MEDS ORDERED: Lactobacil 2-S.Thermo-Bifido 1 1 Cap PO SCH (21:00)
[2024-07-10] MEDS ORDERED: Donepezil HCl 5 MG Tab PO SCH (21:00)
[2024-07-11 02:43] VITALS: BP 136/56
--- NOTE | 2024-07-11 05:01 | NUR ---
SHIFT SUMMARY ASSUMED CARE OF PT APPROX 1900. PT A&O2/3 AT TIMES, CONFUSED TO SITUATION AND TIME. PT COOPERATIVE IN CARE AND ABLE TO EXPRESS NEEDS. NO SKIN BREAKDOWN NOTED ON PT, MEPILEX PLACED ON SACRUM FOR PI PREVENTION. ASSISTED PT WITH MEDICATION ADMINISTRATION; PILLS IN APPLESAUCE. PT ATTEMPTED TO GET OUT OF BED TO GO TO THE RR, HX OF FALLS AND CVA W L DEFICITS. ATTENDS AND PUREWICK IN PLACE. BED ALARM ACTIVATED, BED IN LOWEST POSITION AND CALL LIGHT WITHIN REACH.
[2024-07-11] MEDS ORDERED: Pantoprazole Sodium 40 MG Tab PO SCH (06:00)
[2024-07-11] MEDS ORDERED: Omeprazole 20 MG CapCR PO SCH (06:00)
[2024-07-11 06:08] LABS: BASOPHILS PERCENT AUTO 1 % (0-2); EOSINOPHILS ABSOLUTE AUTO 0.12 K/mm3 (0.00-0.68); EOSINOPHILS PERCENT AUTO 1 % (0-6); Hematocrit 42.1 % (33.0-51.0); Hemoglobin 13.6 g/dL (11.5-16.0); IMMATURE GRAN ABSOLUTE AUTO 0.07 K/mm3 (0.00-0.10); IMMATURE GRAN PERCENT AUTO 1 % (0-1); LYMPHOCYTES ABSOLUTE AUTO 2.19 K/mm3 (0.84-5.20); LYMPHOCYTES PERCENT AUTO 25 % (21-46); MONOCYTES ABSOLUTE AUTO 0.89 K/mm3 (0.16-1.47); MONOCYTES PERCENT AUTO 10 % (4-13); Mean Corpuscular HGB 28.2 pg (26.0-34.0); Mean Corpuscular HGB Conc 32.3 g/dL (31.5-36.5); Mean Corpuscular Volume 87 fL (80-100); Mean Platelet Volume 9.5 fL (9.1-12.4); NEUTROPHILS ABSOLUTE AUTO 5.46 K/mm3 (1.96-9.15); NEUTROPHILS PERCENT AUTO 62 % (41-73); Platelet Count 180 K/mm3 (150-400); RDW Coefficient Variation 15.2 % (11.7-14.2); RDW Standard Deviation 48.5 fL (35.1-46.3); Red Blood Cell Count 4.82 M/mm3 (3.80-5.20); White Blood Cell Count 8.83 K/mm3 (4.00-11.30)
[2024-07-11 06:25] LABS: Albumin, Blood 2.9 g/dL (3.4-5.0); Albumin/Globulin Ratio 0.7 (0.8-1.8); Bilirubin, Total 0.7 mg/dL (0.1-1.0); Bun/Creatinine Ratio 23.8 (12.0-20.0); Calcium, Blood 9.1 mg/dL (8.5-10.1); Creatinine, Blood 0.5 mg/dL (0.40-1.00); Globulin, Blood 4.4 g/dL (2.2-4.0); Potassium, Blood 3.9 mmol/L (3.5-5.5); Total Protein, Blood 7.3 g/dL (6.4-8.2)
[2024-07-11 07:33] VITALS: BP 164/76
[2024-07-11] MEDS ORDERED: CefTRIAXone Sodium 1,000 MG in NS 100 ML IV SCH (09:00)
[2024-07-11] MEDS ORDERED: Clopidogrel Bisulfate 75 MG Tab PO SCH (09:00)
[2024-07-11] MEDS ORDERED: Aspirin 81 MG Chew PO SCH (09:00)
[2024-07-11] MEDS ORDERED: Atorvastatin 40 MG Tab PO SCH (09:00)
[2024-07-11] MEDS ORDERED: Enoxaparin 40 MG/0.4 ML SYR SC SCH (09:00)
--- NOTE | 2024-07-11 14:45 | NUR ---
Pt. is awake in bed nad welcomes my visit. Pt. is pleasant. Spouse is at bedside. Facilitated introductions and a life review. Pt. verbalized that she had grown up in [place]. Pt. also verbalized the recent difficulty of the imact a stroke has had on her life. Listen with empathy and a calming presence. Considered matters of jessica and belief. Pt. displayed evidence of being engaged and aware, though she was repetitive at times. Prayed for the Pt. Both the Pt. and spouse verbalized gratitude for the spiritual care visit and welcomed this chaplaim to return.
[2024-07-11 15:47] VITALS: BP 146/68
--- NOTE | 2024-07-11 17:09 | NUR ---
SHIFT SUMMARY PT IS A/OX2-3, CONFUSION OF DATE/TIME AND OCCASIONALLY THE CURRENT SITUATION. NO ACUTE EVENTS THROUGHOUT THIS SHIFT. MEPILEX IN CHANGED AND IN PLACE TO THE COCCYX D/T REDNESS TO THE SKIN. PT ABLE TO TAKE MEDS WITH APPLESAUCE. LEFT SIDED WEAKNESS D/T HX OF A CVA ABOUT 5 WEEKS AGO. ON TELE, ATRIAL PACED IN THE 60-70'S. PURWICK IN PLACE, SUCTIONING CLEAR, YELLOW URINE. PT VISITED BY SPIRITUAL CARE AND THIS SHIFT.
[2024-07-11 19:11] VITALS: BP 132/63
--- NOTE | 2024-07-12 00:56 | NUR ---
07/11/242017 PT LYING IN BED, REPORTS LOWER BACK PAIN, GAVE ULTRAM AND BACLOFEN, WILL EVAL FOR EFFECT. PT REPORTS SLIGHT NAUSEA BUT STATES SHE DOESN'T FEEL SHE NEEDS MEDS FOR IT AT THIS TIME. PT ENCOURAGED TO CALL IF THAT CHANGES. MEPLEX ON BOTTOM/COCCYX COVERING SOME REDNESS AND A SMALL SKIN TEAR. TELE IS ATRIAL PACED, SINUS RYTHYM, AT 65. NO OTHER APPARENT SIGNS OF DISTRESS. CALL LIGHT IS IN REACH.
--- NOTE | 2024-07-12 02:09 | NUR ---
07/11/24 2332 PT LYING IN BED, WAKES TO VERBAL STIMULI. DENIES NEED FOR ANYTHING AT THIS TIME. CALL LIGHT IS IN REACH. NO APPARENT SIGNS OF DISTRESS.
--- NOTE | 2024-07-12 02:10 | NUR ---
PT LYING IN BED, EYES CLOSED, APPEARS TO BE RESTING. BREATHING IS EVEN, UNLABORED. NO APPARENT SIGNS OF DISTRESS. CALL LIGHT IS IN REACH.
--- NOTE | 2024-07-12 04:22 | NUR ---
PT LYING IN BED, EYES CLOSED, APPEARS TO BE RESTING. BREATHING IS EVEN, UNLABORED. NO APPARENT SIGNS OF DISTRESS. CALL LIGHT IS IN REACH.
--- NOTE | 2024-07-12 04:23 | NUR ---
PT IS AAO X 4, REPORTS LOWER BACK PAIN, GOT ULTRAM AND BACLOFEN AT HS. TELE SR, ATRIAL PACED, 60'S. SLIGHT NAUSEA AT HS, DID NOT WANT MEDS, NO FURTHER REPORTS OF NAUSEA AFTER. ON RA.
[2024-07-12 04:42] VITALS: BP 146/66
--- NOTE | 2024-07-12 06:27 | NUR ---
PT LYING IN BED, AWAKE, NO APPARENT SIGNS OF DISTRESS. DENIES NEED FOR ANYTHING AT THIS TIME. CALL LIGHT IS IN REACH. NO OTHER CHANGES THIS SHIFT.
[2024-07-12 07:46] VITALS: BP 146/84
[2024-07-12] MEDS ORDERED: ENOX40I SC (13:27)
[2024-07-12] MEDS ORDERED: VISBIOME 112.51 EACH PO (13:27)
[2024-07-12 15:49] VITALS: BP 116/86
[2024-07-12 16:01] LABS: CORONAVIRUS COVID-19 AG Negative (NEGATIVE)
--- NOTE | 2024-07-12 18:43 | NUR ---
SHIFT SUMMARY: PT A/O X4. COOPERATIVE WITH CARE. PT SUPPOSED TO D/C BACK TO [facility] TODAY BUT ENDED UP HAVING "SEVERE" BLADDER SPASMS AND LOWER BACK PACK. BLADDER SCAN COMPLETED SHOWING OmL. STOMACH DISTENDED. SPOKE WITH DR. WHITAKER STATING TO HOLD DISCHARGE AND GIVE ADDITIONAL DOSE OF BACLOFEN. BACLOFEN GIVEN AND HEATING PAD APPLIED. CALL LIGHT IN REACH. BED IN LOWEST POSITION.
[2024-07-12 20:51] VITALS: BP 140/65
--- NOTE | 2024-07-13 03:40 | NUR ---
SHIFT SUMMARY PT IS A&O X4, APPEARS TIRED AT HS. PT C/O 10/ BACK PAIN. HEATING PAD ON TOP OF ABDOMEN. PRN TRAMADOL AND BACLOFEN ADMINISTERED ORDERED. TELE: SR @71. PT REFUSED A NEW IV INSERTION & IV FLUID ORDER NS @50MLS/HR. FEMALE PUREWICK DRAINING>1L OF LIGHT YELLOW COLOR URINE. NO COMPLAINTS OF BLADDER SPASMS DURING THIS SHIFT. PT RESTED T/O THIS SHIFT. NO ACUTE EVENTS DURING THIS SHIFT. BED AT THE LOWEST POSITION, HOB>45 DEGREES. CALL LIGHT W/I REACH.
[2024-07-13 04:26] VITALS: BP 125/65
[2024-07-13 07:11] VITALS: BP 132/74
== END 2024-07-13 14:55 | DRG 690 ==
LOC: ER 05:07 → ERHOLD 13:58 → MEDS 13:58 → ENPENDDIS 07-12 18:16 → MEDS 07-13 14:55
PROVIDERS: Emergency Medicine; ADMIT Hospitalist
DX: N12 Tubulo-interstitial nephritis, not specified as acute or chronic (principal); J98.11 Atelectasis; I69.954 Hemiplegia and hemiparesis following unspecified cerebrovascular disease affecting left non-dominant side; F03.A4 Unspecified dementia, mild, with anxiety; F03.A3 Unspecified dementia, mild, with mood disturbance; E11.9 Type 2 diabetes mellitus without complications; K21.9 Gastro-esophageal reflux disease without esophagitis; G89.29 Other chronic pain; I48.91 Unspecified atrial fibrillation; H81.10 Benign paroxysmal vertigo, unspecified ear; J45.909 Unspecified asthma, uncomplicated; I10 Essential (primary) hypertension; Z88.2 Allergy status to sulfonamides; Z88.1 Allergy status to other antibiotic agents; Z88.8 Allergy status to other drugs, medicaments and biological substances; Z91.048 Other nonmedicinal substance allergy status; Z95.0 Presence of cardiac pacemaker; Z90.710 Acquired absence of both cervix and uterus; Z90.49 Acquired absence of other specified parts of digestive tract; Z90.89 Acquired absence of other organs; Z98.890 Other specified postprocedural states; Z87.81 Personal history of (healed) traumatic fracture; Z87.891 Personal history of nicotine dependence; Z23 Encounter for immunization
CPT/HCPCS: 36415; 74177; 80053; 81001; 83605; 83690; 83735; 84484; 85025; 87077; 87086; 87186; 87426-QW; 90656; 93005; 93010; 96365-59; 96375; 97162; 97165; 97530; 99285-25; A9270; J0696; J1650; J1885; J2270; J2405; J7030; P9612; Q9967

== ENCOUNTER 2024-07-29 05:35 | Emergency (ER) | payer MEDICARE ==
[~2024-07-29] VITALS: Ht 167.6 cm; Wt 81.7 kg
[~2024-07-29 05:35] MED LIST changes: +ENOX40I SC; +VISBIOME 112.51 EACH PO
[2024-07-29] MEDS ORDERED: DONEPEZIL HCL10 M1 PO (05:56)
[2024-07-29] MEDS ORDERED: TRAM50 PO (05:59)
[2024-07-29] MEDS ORDERED: NEURONTIN300 MG PO (05:59)
[2024-07-29] MEDS ORDERED: XARELTO20 MG PO (06:00)
[2024-07-29] MEDS ORDERED: NS 1,000 ML IV SCH (06:15)
[2024-07-29] MEDS ORDERED: Ketorolac Tromethamine 30mg Vial IV ONE (06:15)
[2024-07-29] MEDS ORDERED: Ondansetron HCl 2 MG / ML 2ML Vial IV ONE (06:15)
[2024-07-29 06:20] LABS: BASOPHILS ABSOLUTE AUTO 0.11 K/mm3 (0.00-0.23); BASOPHILS PERCENT AUTO 1 % (0-2); EOSINOPHILS ABSOLUTE AUTO 0.13 K/mm3 (0.00-0.68); EOSINOPHILS PERCENT AUTO 1 % (0-6); Hematocrit 38.3 % (33.0-51.0); Hemoglobin 12.5 g/dL (11.5-16.0); IMMATURE GRAN ABSOLUTE AUTO 0.05 K/mm3 (0.00-0.10); IMMATURE GRAN PERCENT AUTO 1 % (0-1); LYMPHOCYTES ABSOLUTE AUTO 3.53 K/mm3 (0.84-5.20); LYMPHOCYTES PERCENT AUTO 38 % (21-46); MONOCYTES ABSOLUTE AUTO 1.03 K/mm3 (0.16-1.47); MONOCYTES PERCENT AUTO 11 % (4-13); Mean Corpuscular HGB 28.5 pg (26.0-34.0); Mean Corpuscular HGB Conc 32.6 g/dL (31.5-36.5); Mean Corpuscular Volume 87 fL (80-100); Mean Platelet Volume 9.4 fL (9.1-12.4); NEUTROPHILS ABSOLUTE AUTO 4.34 K/mm3 (1.96-9.15); NEUTROPHILS PERCENT AUTO 47 % (41-73); Platelet Count 165 K/mm3 (150-400); RDW Coefficient Variation 15.6 % (11.7-14.2); RDW Standard Deviation 49.8 fL (35.1-46.3); Red Blood Cell Count 4.39 M/mm3 (3.80-5.20); White Blood Cell Count 9.19 K/mm3 (4.00-11.30)
[2024-07-29 06:39] LABS: Albumin, Blood 2.7 g/dL (3.4-5.0); Albumin/Globulin Ratio 0.7 (0.8-1.8); Bilirubin, Total 0.7 mg/dL (0.1-1.0); Bun/Creatinine Ratio 24.8 (12.0-20.0); Calcium, Blood 9.4 mg/dL (8.5-10.1); Creatinine, Blood 0.65 mg/dL (0.40-1.00); Globulin, Blood 4.1 g/dL (2.2-4.0); Potassium, Blood 3.9 mmol/L (3.5-5.5); Total Protein, Blood 6.8 g/dL (6.4-8.2)
[2024-07-29 07:14] LABS: Source, Urine Straight Cath
[2024-07-29 07:16] LABS: Appearance, Urine Cloudy (Clear); Bilirubin, Urine Neg (Neg); Blood, Urine 3+ (Neg); Glucose Qualitative, Urine Neg (Neg); Ketones, Urine Neg (Neg); Leukocyte Esterase, Urine 3+ (Neg); Nitrite, Urine Neg (Neg); Protein, Urine 2+ (Neg); Urobilinogen, Urine NORM (Normal)
[2024-07-29 07:23] LABS: Color, Urine Pale Yellow (P-Yellow); White Blood Cells, Urine TNTC /hpf (0-5)
[2024-07-29 07:24] LABS: Bacteria Mod /hpf; Squamous Epithelial Cells Few /hpf (Few)
[2024-07-29] MEDS ORDERED: Cefdinir 300 MG Cap PO ONE (07:40)
[2024-07-29] MEDS ORDERED: CEFP200 PO (09:19)
[2024-07-29] MEDS ORDERED: ONDA4ODT MM (09:19)
[2024-07-29 10:06] VITALS: BP 107/84
== END 2024-07-29 10:07 | disposition home or self-care (01) ==
LOC: ER 05:35
PROVIDERS: Student in an Organized Health Care Education/Training Program
DX: N12 Tubulo-interstitial nephritis, not specified as acute or chronic (principal); I69.354 Hemiplegia and hemiparesis following cerebral infarction affecting left non-dominant side; J45.909 Unspecified asthma, uncomplicated; E11.9 Type 2 diabetes mellitus without complications; F03.90 Unspecified dementia, unspecified severity, without behavioral disturbance, psychotic disturbance, mood disturbance, and anxiety; I48.91 Unspecified atrial fibrillation; I10 Essential (primary) hypertension; K21.9 Gastro-esophageal reflux disease without esophagitis; Z87.891 Personal history of nicotine dependence; Z88.2 Allergy status to sulfonamides; Z88.0 Allergy status to penicillin; Z88.1 Allergy status to other antibiotic agents; Z91.048 Other nonmedicinal substance allergy status; Z79.82 Long term (current) use of aspirin; Z79.01 Long term (current) use of anticoagulants; Z79.84 Long term (current) use of oral hypoglycemic drugs; Z79.899 Other long term (current) drug therapy
CPT/HCPCS: 74177; 80053; 81001; 83690; 85025; 87077; 87086; 87186; 96374-59; 96375; 99284-25; A9270; J1885; J2405; J7030; Q9967

== ENCOUNTER 2024-08-06 15:10 | Emergency (ER) | payer MEDICARE ==
[~2024-08-06] VITALS: Ht 170.2 cm; Wt 86.2 kg
[~2024-08-06 15:10] MED LIST changes: +DONEPEZIL HCL10 M1 PO; +NEURONTIN300 MG PO; +XARELTO20 MG PO
[2024-08-06] MEDS ORDERED: Acetaminophen 325 MG TABLET PO ONE (18:55)
[2024-08-06] MEDS ORDERED: Acetaminophen325 M1 PO (19:21)
[2024-08-06 19:49] VITALS: BP 105/70
== END 2024-08-06 21:44 | disposition home or self-care (01) ==
LOC: ER 15:10
DX: M25.562 Pain in left knee (principal); Z87.891 Personal history of nicotine dependence; Z95.0 Presence of cardiac pacemaker; Z95.5 Presence of coronary angioplasty implant and graft; J45.909 Unspecified asthma, uncomplicated; E11.9 Type 2 diabetes mellitus without complications; Z86.73 Personal history of transient ischemic attack (TIA), and cerebral infarction without residual deficits; I10 Essential (primary) hypertension; K21.9 Gastro-esophageal reflux disease without esophagitis; I48.91 Unspecified atrial fibrillation; Z79.84 Long term (current) use of oral hypoglycemic drugs; Z79.02 Long term (current) use of antithrombotics/antiplatelets; Z79.01 Long term (current) use of anticoagulants; Z79.82 Long term (current) use of aspirin; Z79.899 Other long term (current) drug therapy; Z88.0 Allergy status to penicillin; Z88.1 Allergy status to other antibiotic agents; Z88.2 Allergy status to sulfonamides; Z88.8 Allergy status to other drugs, medicaments and biological substances; Z91.09 Other allergy status, other than to drugs and biological substances
CPT/HCPCS: 93971; 99284-25; A9270

== ENCOUNTER 2024-09-04 10:41 | Inpatient (IN) | payer MEDICARE, OTHER ==
[~2024-09-04] VITALS: Ht 177.8 cm; Wt 82.5 kg
[2024-09-04 12:03] LABS: CORONAVIRUS COVID-19 AG Negative (NEGATIVE)
[2024-09-04 12:11] LABS: BASOPHILS ABSOLUTE AUTO 0.12 K/mm3 (0.00-0.23); BASOPHILS PERCENT AUTO 1 % (0-2); EOSINOPHILS ABSOLUTE AUTO 0.13 K/mm3 (0.00-0.68); EOSINOPHILS PERCENT AUTO 1 % (0-6); Hematocrit 36.5 % (33.0-51.0); Hemoglobin 12.3 g/dL (11.5-16.0); IMMATURE GRAN PERCENT AUTO 1 % (0-1); LYMPHOCYTES ABSOLUTE AUTO 3.43 K/mm3 (0.84-5.20); LYMPHOCYTES PERCENT AUTO 29 % (21-46); MONOCYTES ABSOLUTE AUTO 0.94 K/mm3 (0.16-1.47); MONOCYTES PERCENT AUTO 8 % (4-13); Mean Corpuscular HGB 29.1 pg (26.0-34.0); Mean Corpuscular HGB Conc 33.7 g/dL (31.5-36.5); Mean Corpuscular Volume 87 fL (80-100); Mean Platelet Volume 9.3 fL (9.1-12.4); NEUTROPHILS ABSOLUTE AUTO 7.02 K/mm3 (1.96-9.15); NEUTROPHILS PERCENT AUTO 60 % (41-73); Platelet Count 195 K/mm3 (150-400); RDW Coefficient Variation 15.3 % (11.7-14.2); RDW Standard Deviation 48.6 fL (35.1-46.3); Red Blood Cell Count 4.22 M/mm3 (3.80-5.20); White Blood Cell Count 11.74 K/mm3 (4.00-11.30)
[2024-09-04 12:32] LABS: Albumin, Blood 2.8 g/dL (3.4-5.0); Albumin/Globulin Ratio 0.7 (0.8-1.8); Bilirubin, Total 0.7 mg/dL (0.1-1.0); Bun/Creatinine Ratio 15.7 (12.0-20.0); Calcium, Blood 8.8 mg/dL (8.5-10.1); Creatinine, Blood 0.57 mg/dL (0.40-1.00); Potassium, Blood 3.9 mmol/L (3.5-5.5); Total Protein, Blood 6.8 g/dL (6.4-8.2)
[2024-09-04 14:37] LABS: Influenza A, PCR NEGATIVE (NEGATIVE); Influenza B, PCR NEGATIVE (NEGATIVE); Resp Syncytial Virus, PCR NEGATIVE (NEGATIVE); SARS-Cov-2 (COVID-19) PCR, MMC NEGATIVE (NEGATIVE)
[2024-09-04] MEDS ORDERED: Azithromycin 500 MG in NS 250 ML IV ONE (15:15)
[2024-09-04] MEDS ORDERED: CefTRIAXone Sodium 1,000 MG in NS 100 ML IV ONE (15:15)
[2024-09-04] MEDS ORDERED: FLU VACC TS2024-25(6MOS UP)/PF 45 MCG/0.5 ML SYRINGE IM ONE (16:20)
[2024-09-04] MEDS ORDERED: Baclofen 10 MG Tab PO SCH (16:20)
[2024-09-04] MEDS ORDERED: Acetaminophen 500 MG Tab PO PRN (16:20)
[2024-09-04] MEDS ORDERED: Albuterol 2.5 MG/3 ML VIAL INH PRN (16:25)
[2024-09-04] MEDS ORDERED: Ondansetron 4 MG SoluTab MM PRN (16:25)
[2024-09-04] MEDS ORDERED: TraMADol HCl 50 MG Tab PO PRN (16:25)
[2024-09-04] MEDS ORDERED: MetFORMIN HCl 500 mg PO SCH (17:00)
[2024-09-04] MEDS ORDERED: Gabapentin 300 MG Cap PO SCH (21:00)
[2024-09-04] MEDS ORDERED: Lactobacil 2-S.Thermo-Bifido 1 1 Cap PO SCH (21:00)
[2024-09-05] MEDS ORDERED: GUAI600T33 PO (01:32)
[2024-09-05 03:53] VITALS: BP 107/74
--- NOTE | 2024-09-05 05:51 | NUR ---
ADMIT AND SUMMARY: REPORT RECEIVED AT FROM YULIET (COMPUTER FORENSIC SPECIALIST) AND PT T/F VIA [facility]WEBSTER TO ROOM 325 AT 2000. SHE'S A/OX3-4, WAS ORIENTED TO ROOM AND CALL SYSTEM AND IS PLEASANT AND COOPERATIVE W/CARE. 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 SHE HAS GROSS MOVEMENT OF L.LEG W/ABILITY TO BEND AT KNEE BUT IS UNABLE TO LIFT LEG FROM BED OR FLEX/EXTEND FOOT AND WIGGLE TOES. L.HAND DEXTERITY IS INTACT BUT L.ARM IS WEAK AND UNCOORDINATED. SHE'S UNABLE TO WT.BEAR AND USES SLIDE BOARD OR LIFT TO T/F TO W/C. BED ALARM ON FOR FALL RISK BUT NO IMPULSIVITY OBSERVED. PUREWIC IS INTACT FOR URGE INCONTINENCE AND PT REPORTS BUTTOCKS PEELING W/O SBD OR OPEN SORES R/T BEDPAN USE AT [facility]. TURN SCHEDULE MAINTAINED AND ATTENDS CHANGED PRN. PT IS ON 2L O2 VIA NC W/CONT BIOX INTACT. OCC.PRODUCTIVE COUGH PERSISTS W/WHITE-COMBS SPUTUM OBSERVED. IV ABX RECEIVED IN ER AND ZOFRAN PROVIDED FOR RELIEF OF INTERMITTENT NAUSEA T/O NOCTE. NO ACUTE CHANGES, VSS AND AFEBRILE. SHE HAS PM INTACT TO L.CHEST AND HAS BEEN ASYMPTOMATIC OF CARDIAC DISTRESS. WCTM AND REPORT TO DAY RN.
[2024-09-05 07:24] LABS: BASOPHILS ABSOLUTE AUTO 0.14 K/mm3 (0.00-0.23); BASOPHILS PERCENT AUTO 1 % (0-2); EOSINOPHILS ABSOLUTE AUTO 0.18 K/mm3 (0.00-0.68); EOSINOPHILS PERCENT AUTO 2 % (0-6); Hematocrit 38.8 % (33.0-51.0); Hemoglobin 13.1 g/dL (11.5-16.0); IMMATURE GRAN PERCENT AUTO 1 % (0-1); LYMPHOCYTES ABSOLUTE AUTO 2.16 K/mm3 (0.84-5.20); LYMPHOCYTES PERCENT AUTO 22 % (21-46); MONOCYTES ABSOLUTE AUTO 0.88 K/mm3 (0.16-1.47); MONOCYTES PERCENT AUTO 9 % (4-13); Mean Corpuscular HGB 29.5 pg (26.0-34.0); Mean Corpuscular HGB Conc 33.8 g/dL (31.5-36.5); Mean Corpuscular Volume 87 fL (80-100); Mean Platelet Volume 9.6 fL (9.1-12.4); NEUTROPHILS ABSOLUTE AUTO 6.44 K/mm3 (1.96-9.15); NEUTROPHILS PERCENT AUTO 65 % (41-73); Platelet Count 203 K/mm3 (150-400); RDW Coefficient Variation 15.3 % (11.7-14.2); RDW Standard Deviation 49.1 fL (35.1-46.3); Red Blood Cell Count 4.44 M/mm3 (3.80-5.20)
[2024-09-05 07:46] LABS: Albumin, Blood 2.8 g/dL (3.4-5.0); Albumin/Globulin Ratio 0.7 (0.8-1.8); Bilirubin, Total 0.6 mg/dL (0.1-1.0); Bun/Creatinine Ratio 14.8 (12.0-20.0); Calcium, Blood 9.2 mg/dL (8.5-10.1); Creatinine, Blood 0.54 mg/dL (0.40-1.00); Globulin, Blood 4.2 g/dL (2.2-4.0); Magnesium, Blood 1.7 mg/dL (1.6-2.4); Phosphorus, Blood 3.7 mg/dL (2.5-4.9)
[2024-09-05 08:18] VITALS: BP 139/63
[2024-09-05] MEDS ORDERED: Enoxaparin 40 MG/0.4 ML SYR SC SCH (09:00)
[2024-09-05] MEDS ORDERED: Donepezil HCl 5 MG Tab PO SCH (09:00)
[2024-09-05] MEDS ORDERED: Atorvastatin 40 MG Tab PO SCH (09:00)
[2024-09-05] MEDS ORDERED: Clopidogrel Bisulfate 75 MG Tab PO SCH (09:00)
[2024-09-05] MEDS ORDERED: Aspirin 81 MG TabEC PO SCH (09:00)
[2024-09-05] MEDS ORDERED: Ipratropium/Albuterol SulF 2.5-0.5MG/3 ML Amp INH SCH (11:20)
[2024-09-05] MEDS ORDERED: MethylPREDNISolone Sod Succ 125 MG Vial IV SCH (12:00)
[2024-09-05 16:10] VITALS: BP 95/48
[2024-09-05] MEDS ORDERED: NS 250 ML IV PRN (17:00)
[2024-09-05] MEDS ORDERED: CefTRIAXone Sodium 1,000 MG in NS 100 ML IV SCH (18:00)
--- NOTE | 2024-09-05 18:22 | NUR ---
SHIFT SUMMARY A&0X2-3, CONFUSED, ABLE TO CALL FOR NEEDS. DENIED ANY CP/PRESSURE, HEADACHE, OR DIZZINESS. CURRENTLY ON 2L VIA NC, SATTING >93%. SOB WITH EXERTION. PRODUCTIVE COUGH T/O SHIFT. LUNGS WHEEZY, WITH COURSE AND FINE CRACKLES. RECEIVED STEROIDS THIS AFTERNOON. PATIENT WORKED WITH PT/OT AND BECAME INCREASINGLY CONFUSED AND NEEDY, BUT COULDN'T VERBALIZE WHAT SHE NEEDED HELP WITH. PUREWICK CHANGED, PATENT AND SUCTIONING FINE. SOFT BP'S NOTED THIS AFTERNOON. FAMILY AT BEDSIDE FOR PART OF SHIFT. NO ACUTE EVENTS. BED IN THE LOWEST POSITION. CALL LIGHT WITHIN REACH.
[2024-09-05 19:44] VITALS: BP 110/44
[2024-09-05] MEDS ORDERED: HyDROXyzine HCl 10 MG Tab PO PRN (23:30)
[2024-09-05] MEDS ORDERED: GuaiFENesin 600 MG TabCR PO SCH (23:30)
--- NOTE | 2024-09-06 05:00 | NUR ---
SUMMARY: PT HAS SPENT MAJORITY OF NOCTE MORE CONFUSED, ANXIOUS AND FIGITY WA. SHE'S ORIENTED TO SELF AND PLACE BUT WAS FORGETFULL TO SITUATION AND USED CALL LIGHT FREQUENTLY FOR NON-DESCRIPT NEEDS. PT WOULD ALSO CHANGE REQUESTS REPEATEDLY WHEN STAFF IN ROOM AND APPEARED DIFFICULT TO CALM OR REDIRECT DESPITE NEEDS MET. SHE HAS FREQ.PRODUCTIVE COUGH W/MODERATE AMT OF THICK WHITE/COMBS SPUTUM. COUGING FITS OFTEN PRECEEDED EPISODES OF INCREASED SOB AND ANXIETY BUT PT MAINTAINED SPO2 >95% ON 2L O2 VIA NC. RT PROVIDED BREATHING TX'S FOR TEMPORARY RELIEF AND MD NOTIFIED OF EVENTS. SCHEDULED GUAIFENESON AND PRN ATARAX WAS RX'D AND RECEIVED AND SHE'S BEEN SLEEPING MORE COMFORTABLY W/O S/S DISTRESS. PUREWIC IS IN PLACE FOR INCONTINENCE AND MEPILEX APPLIED TO BUTTOCKS W/INTACT PEELING SKIN. PT C/O OF GEN.PAIN W/BACLOFEN RECEIVED FOR TOLERABLE RELIEF. NO ACUTE CHANGES, VSS/AFEBRILE. WCTM AND REPORT TO DAY RN.
[2024-09-06 06:24] VITALS: BP 123/69
[2024-09-06 07:55] VITALS: BP 113/99
[2024-09-06] MEDS ORDERED: Prednisone10 MG (14:50)
[2024-09-06] MEDS ORDERED: CEFP200 PO (14:51)
--- NOTE | 2024-09-06 15:20 | NUR ---
DISCHARGE NOTE PATIENT A/OX4 THIS AM, ABLE TO MAKE NEEDS KNOWN. COOPERATIVE WITH CARE, ANXIOUS THIS MORNING. PRN HYDROXIZINE ADMINISTERED PER SEP. PATIENT ALSO COMPLAINING OF NECK PAIN AND GENERALIZED PAIN, BACLOFEN AND ULTRAM ADMINISTERED THIS SHIFT. LATER PATIENT COMPLAINING OF NAUSEA, PRN ZOFRAN ADMINISTERED PER SEP. REPORT PROVIDED TO MICA [facility]. IV REMOVED. PATIENT AWAITING WHEELCHAIR TRANSPORTATION TO SNF. NO OTHER CONCERNS AT THIS TIME.
--- NOTE | 2024-09-06 16:10 | NUR ---
PATIENT DISCHARGED TRANSPORTATION ARRIVED TO [facility] PATIENT. PATIENT ASSISTED TO WHEELCHAIR VIA LIFT TRANSFER AND [facility] STAFF.
== END 2024-09-06 16:03 | DRG 194 ==
LOC: ER 10:41 → MEDS 16:14
PROVIDERS: Student in an Organized Health Care Education/Training Program; ADMIT Family Medicine
DX: J18.9 Pneumonia, unspecified organism (principal); F03.94 Unspecified dementia, unspecified severity, with anxiety; I69.954 Hemiplegia and hemiparesis following unspecified cerebrovascular disease affecting left non-dominant side; J44.0 Chronic obstructive pulmonary disease with (acute) lower respiratory infection; I10 Essential (primary) hypertension; Z99.81 Dependence on supplemental oxygen; Z95.0 Presence of cardiac pacemaker; E11.9 Type 2 diabetes mellitus without complications; I48.91 Unspecified atrial fibrillation; Z99.3 Dependence on wheelchair; Z88.1 Allergy status to other antibiotic agents; Z91.041 Radiographic dye allergy status; Z88.2 Allergy status to sulfonamides; Z88.8 Allergy status to other drugs, medicaments and biological substances; Z91.048 Other nonmedicinal substance allergy status; Z79.82 Long term (current) use of aspirin; Z79.02 Long term (current) use of antithrombotics/antiplatelets; Z79.84 Long term (current) use of oral hypoglycemic drugs; Z79.899 Other long term (current) drug therapy; Z79.01 Long term (current) use of anticoagulants; E66.9 Obesity, unspecified; Z66 Do not resuscitate; Z87.19 Personal history of other diseases of the digestive system; K21.9 Gastro-esophageal reflux disease without esophagitis; Z90.49 Acquired absence of other specified parts of digestive tract; Z90.89 Acquired absence of other organs; Z90.710 Acquired absence of both cervix and uterus; Z87.891 Personal history of nicotine dependence
CPT/HCPCS: 0241U; 36415; 71045; 80053; 83735; 84100; 84484; 85025; 87426-QW; 93005; 93010; 94640; 94664; 94760; 96374; 97110; 97162; 97165; 97530; 97535; 99285-25; A9270; J0456; J0696; J1650; J2919; J7050